=== PATIENT | male | born 1970 | race Caucasian/White ===

== ENCOUNTER 2018-11-07 18:37 | Inpatient (IN) | payer OTHER, MEDICAID, SELFPAY ==
--- NOTE | 2018-11-07 | DI.ECHO.S_ITS ---
[facility]---------+ [facility] +---------+ : : [address] : [place] [address] : : : : [id number] : : : : Phone: [phone]---------+ Echocardiogram Report + + :Name: FELIX CARRILLO Scarlet Study Date: 11/09/2018 Height: 67 in : :[facility] Weight: 130 lb : : Gender: Male BSA: 1.7 m2 : :: 1970 Age: 48 yrs BP: 116/52 mmHg: :Reason For Study: new systolic murmur : : Performed By: Eusebia Burt : :Referring: YOVANA WILEY : + + Interpretation Summary 1) Normal left ventricular size, thickness, wall motion, and systolic function (EF 55-60%). 2) Mildly enlarged right ventricle with mildly reduced function. 3) Aortic valve has nodular calcifications. 4) There is a nodular calcification attached to the base of the anterior mitral valve leaflet which was noted on the prior study. 5) There is moderate aortic regurgitation. 6) Compared to the Echo done 11/01/2014, no significant change. Procedure: A two-dimensional transthoracic echocardiogram with color flow and Doppler was performed. The study quality was technically adequate. Comparison is made with the echocardiogram of 11/01/2014. The heart rate ranged between 100-115 bpm during the study. Left Ventricle: The left ventricle is normal in size. There is normal left ventricular wall thickness. False chords are noted (normal variant). The ejection fraction is estimated to be 55-60%. Diastolic function could not be accurately assessed due to tachycardia. Right Ventricle: The right ventricle is mildly dilated. Right ventricular systolic function is mildly reduced. Atria: Both atria are normal in size. There is no Doppler evidence for an interatrial shunt. Mitral Valve: The mitral valve leaflets appear mildly thickened, but open well. There is a nodular calcification attached to the base of the anterior mitral valve leaflet which was noted on the prior. There is trace mitral regurgitation. Aortic Valve: The aortic valve opens well. The aortic valve is mildly calcified. The aortic valve is trileaflet. There is no hemodynamically significant valvular aortic stenosis. There is moderate aortic regurgitation. Tricuspid Valve: The tricuspid valve is normal in structure and function. There is a trace or physiologic amount of tricuspid regurgitation. Pulmonary artery pressures cannot be estimated because of the lack of a measurable TR jet velocity. Pulmonic Valve: The pulmonic valve leaflets are thin and pliable; valve motion is normal. There is a trace or physiologic amount of pulmonic regurgitation. Great Vessels: The aortic root is normal size. The ascending aorta is normal in size. The aortic arch could not be visualized. The pulmonary artery is normal size. The IVC is of normal diameter and collapses greater than 50% with a sniff. This suggests a low right atrial pressure of 3 mm Hg. Pericardium/ Pleura There is no pericardial effusion. There is no pleural effusion. MMode/2D Measurements & Calculations LVIDd: 4.1 cm LVOT diam: 1.8 cm LVIDs: 3.5 cm Ao root diam: 2.6 cm FS: 15.1 % asc Aorta Diam: 2.7 cm IVSd: 0.70 cm LVPWd: 0.92 cm LV kitchen. diameter/BSA (cm/m^2): 2.4 LV sys. diameter/BSA (cm/m^2): 2.1 LA A2 area: 11.3 cm2 RA long axis: 3.5 cm LA A4 area: 12.3 cm2 RA area: 9.1 cm2 LA length (vol): 5.0 cm RA vol: 20.2 ml LA vol: 23.5 ml RA : 12.0 ml/m2 LA vol index: 13.9 ml/m2 IVC diam: 1.3 cm RVD1 (basal): 2.7 cm TAPSE: 1.1 cm Doppler Measurements & Calculations Ao V2 max: 147.8 cm/sec LVOT Max Damien: 86.8 cm/sec Ao V2 mean: 111.0 cm/sec LV V1 max P.0 mmHg Ao max P.7 mmHg LV V1 VTI: 14.6 cm Ao mean P.4 mmHg MAYA(I,D): 1.3 cm2 Ao V2 VTI: 28.3 cm MAYA(V,D): 1.5 cm2 sev ratio: 0.52 MAYA indexed to BSA (cm^2/m^2): 0.78 AI P1/2t: 270.1 msec AI dec slope: 440.7 cm/sec2 MV E max damien: 114.9 cm/sec SV(LVOT): 37.4 ml MV A max damien: 129.8 cm/sec MV E/A: 0.88 MV dec time: 0.12 sec Reading Physician:01:[id number] PM
--- NOTE | 2018-11-07 | DI.US.S_ITS ---
PROCEDURE: US PERIPH VENOUS LOW EXTREM RT INDICATIONS: RIGHT CALF PAIN TECHNIQUE: Real-time imaging, as well as color and pulse Doppler interrogation, were performed of the lower extremity deep veins from the inguinal ligament to the popliteal fossa. COMPARISON: None. FINDINGS: The deep veins are normally compressible, and free of intraluminal thrombus. Color and pulse Doppler demonstrate normal phasic intraluminal flow. There is normal augmentation response to distal compression maneuver. IMPRESSION: Negative for deep venous thrombosis. Dictated by: Js Ly M.D. on 11/08/2018 at 9:36 Approved by: Js Ly M.D. on 11/08/2018 at 9:37
[2018-11-07 18:39] VITALS: BP 138/72; PULSE 115; RESP 16; TEMP 36.9; O2SAT 97
--- NOTE | 2018-11-07 18:59 | ED.EXTPRO ---
HPI - Extremity Problem <Ita Lynne PA-C - Last Filed: 11/07/18 21:57> General Chief complaint: Extremity Problem,Nontraumatic Stated complaint: SWELLING OF FEET AND HANDS Time Seen by Provider: 11/07/18 18:57 Source: patient Mode of arrival: ambulatory Limitations: no limitations History of Present Illness HPI Narrative: this 48-year-old male comes to ED with 1 week history of pain and some swelling mainly in both feet but somewhat in both hands. He states that this is not acutely worse today, came in because he found time now. he states that he sometimes gets redness in the legs but thinks this is worse. He denies any fever. He denies any pain or swelling in the calves. He denies any chest pain or dyspnea. He denies any pain or swelling in other joints. He states that he does have a history of diabetes and does not typically take his gabapentin. He has a history of diabetic neuropathy with some numbness and tingling. He is a smoker, and states that he does use meth but never shoots up (afraid of needles ). he has been eating and drinking normally Related Data Home Medications Medication Instructions Recorded Confirmed metformin 1,000 mg PO BID 11/07/18 11/07/18 Allergies Allergy/AdvReac Type Severity Reaction Status Date / Time No Known Drug Allergies Allergy Verified 11/07/18 20:52 Review of Systems <Ita Lynne PA-C - Last Filed: 11/07/18 21:57> Review of Systems ROS Unobtainable: All systems reviewed & are unremarkable except as noted in HPI and below PFSH <Ita Lynne PA-C - Last Filed: 11/07/18 21:57> Medical History Current smoker (Acute) Dyspnea on exertion (Acute) Hyperglycemia (Acute) Methamphetamine dependence, continuous (Acute) Diabetic neuropathy (Chronic) Non-insulin dependent type 2 diabetes mellitus (Chronic) History of Wilms' tumor (Resolved) Surgical History S/p nephrectomy (Resolved) Social History household members: significant other Smoking Status: Current every day smoker Social History household members: significant other Smoking Status: Current every day smoker Comment: Uses meth, no IV, rare ETOH Exam <Ita Lynne PA-C - Last Filed: 11/07/18 21:57> Narrative Exam Narrative: GENERAL APPEARANCE: Patient sitting comfortably, in no distress. HEENT: PERRL, EOMI LUNGS: Clear to auscultation bilaterally. HEART: Rate and rhythm regular without murmur, normal S1 and S2, no S3 or S4. DERMATOLOGIC: on both lower extremities there is dry cracked skin, more pronounced on the right. On the right garvin there is a scabbed, hyperkeratotic papule. both feet and shins are somewhat erythematous, but substantially more so on the right. Skin on the right foot is warm to touch, cool on the left. No erythema on the hands. Tender over the skin on the right foot especially on the medial side NEUROVASCULAR: Sensation is grossly intact on the feet, DP and PT pulses 2+ bilaterally EXTREMITIES: No cyanosis, moderate symmetric pitting over the feet, no edema or tenderness of the calves MUSCULOSKELETAL: Mildly nodular joints throughout the hand, no effusion. No effusion of the feet or ankles Initial Vital Signs Initial Vital Signs: Vital Signs Temperature 98.4 F 11/07/18 18:39 Pulse Rate 115 H 11/07/18 18:39 Respiratory Rate 16 11/07/18 18:39 Blood Pressure 138/72 11/07/18 18:39 Pulse Oximetry 97 11/07/18 18:39 <Jameson Tapia DO - Last Filed: 11/08/18 04:39> Initial Vital Signs Initial Vital Signs: Vital Signs Temperature 98.4 F 11/07/18 18:39 Pulse Rate 115 H 11/07/18 18:39 Respiratory Rate 16 11/07/18 18:39 Blood Pressure 138/72 11/07/18 18:39 Pulse Oximetry 97 11/07/18 18:39 Course <Ita Lynne PA-C - Last Filed: 11/07/18 21:57> Additional Information: I spoke with KAYLEEN Joyce regarding admission for obs due to markedly elevated glucose in the setting of cellulitis, noncompliance and uncontrolled DM. Ketones and blood gas pending. he does have a clinic to follow up with though not seen there recently , and if he is admitted this can be arranged. KAYLEEN Joyce is agreeable. IV antibiotics and fluids running and awaiting bed assignment. KAYLEEN Joyce elicited some calf tenderness on exam (none noted on my exam) so D dimer was added to labwork and he will f/u on this Orders Ordered: ED Orders 11/07/18 19:52 Complete Blood Count AUTO DIFF Stat Comprehensive Metabolic Panel Stat D Dimer Stat Ketones (Beta-Hydroxybutyrate) Stat Lactate (Lactic Acid) Stat Partial Thromboplastin Time Stat Procalcitonin Routine Prothrombin Time INR Stat 11/07/18 20:32 Venous Blood Gas Stat 11/07/18 22:22 Education, smoking cessation ONGOING 11/07/18 22:32 Consult to Dietitian, Adult Routine Consult to Discharge Planning Routine Consult to Flexographic Press Operator Routine 11/07/18 23:25 Venous Blood Gas Routine 11/08/18 05:30 Lipid Panel Routine Acetaminophen (Tylenol) 650 mg PO Q6HR PRN PRN Reason: As Needed for Fever/Mild Pain Aspirin (Aspirin Ec) 81 mg PO DAILY [facility] Last Admin: 11/07/18 23:58 Dose: 81 mg Dextrose (D50w) 25 gm IV PRN PRN; Protocol PRN Reason: Hypoglycemia Enoxaparin Sodium (Lovenox) 60 mg SUBCUT DAILY [facility] Sodium Chloride (Normal Saline 0.9%) 1,000 mls @ 100 mls/hr IV CONT [facility] Last Admin: 11/07/18 22:49 Dose: 100 mls/hr Insulin Aspart (Novolog Flexpen) 0 unit SUBCUT ACHS [facility]; Protocol Last Admin: 11/07/18 23:59 Dose: 7 unit Morphine Sulfate (Morphine) 2 mg IV Q4HR PRN PRN Reason: Pain, Moderate (4-6) Naloxone HCl (Narcan) 0.2 mg IV Q2MIN PRN PRN Reason: Opiate Reversal Ondansetron HCl (Zofran) 4 mg IV Q8HR PRN PRN Reason: Nausea And Vomiting Pantoprazole Sodium (Protonix) 20 mg PO 0600 [facility] Discontinued Medications Cefazolin Sodium (Ancef Vial) 1 gm IV NOW ONE Stop: 11/07/18 20:55 Last Admin: 11/07/18 21:45 Dose: 1 gm Enoxaparin Sodium (Lovenox) 40 mg SUBCUT DAILY [facility] Last Admin: 11/07/18 23:58 Dose: 40 mg Sodium Chloride (Normal Saline 0.9%) 1,000 mls @ 1,000 mls/hr IV BOLUS ONE Stop: 11/07/18 21:31 Last Infusion: 11/07/18 22:24 Dose: 0 mls/hr Admin: 11/07/18 20:56 Dose: 1,000 mls/hr Vital Signs - 8 hr 11/07/18 22:40 11/07/18 23:49 11/07/18 23:52 Temperature 97.5 F L 97.7 F Pulse Rate 111 H 105 H Respiratory Rate 18 18 Blood Pressure 143/67 H 138/67 Pulse Oximetry 99 98 98 11/08/18 04:16 Temperature 98.0 F Pulse Rate 123 H Respiratory Rate 20 Blood Pressure 133/63 Pulse Oximetry 95 <Jameson Tapia DO - Last Filed: 11/08/18 04:39> Orders Ordered: ED Orders 11/07/18 19:52 Complete Blood Count AUTO DIFF Stat Comprehensive Metabolic Panel Stat D Dimer Stat Ketones (Beta-Hydroxybutyrate) Stat Lactate (Lactic Acid) Stat Partial Thromboplastin Time Stat Procalcitonin Routine Prothrombin Time INR Stat 11/07/18 20:32 Venous Blood Gas Stat 11/07/18 22:22 Education, smoking cessation ONGOING 11/07/18 22:32 Consult to Dietitian, Adult Routine Consult to Discharge Planning Routine Consult to Flexographic Press Operator Routine 11/07/18 23:25 Venous Blood Gas Routine 11/08/18 05:30 Lipid Panel Routine Acetaminophen (Tylenol) 650 mg PO Q6HR PRN PRN Reason: As Needed for Fever/Mild Pain Aspirin (Aspirin Ec) 81 mg PO DAILY [facility] Last Admin: 11/07/18 23:58 Dose: 81 mg Dextrose (D50w) 25 gm IV PRN PRN; Protocol PRN Reason: Hypoglycemia Enoxaparin Sodium (Lovenox) 60 mg SUBCUT DAILY [facility] Sodium Chloride (Normal Saline 0.9%) 1,000 mls @ 100 mls/hr IV CONT [facility] Last Admin: 11/07/18 22:49 Dose: 100 mls/hr Insulin Aspart (Novolog Flexpen) 0 unit SUBCUT ACHS [facility]; Protocol Last Admin: 11/07/18 23:59 Dose: 7 unit Morphine Sulfate (Morphine) 2 mg IV Q4HR PRN PRN Reason: Pain, Moderate (4-6) Naloxone HCl (Narcan) 0.2 mg IV Q2MIN PRN PRN Reason: Opiate Reversal Ondansetron HCl (Zofran) 4 mg IV Q8HR PRN PRN Reason: Nausea And Vomiting Pantoprazole Sodium (Protonix) 20 mg PO 0600 [facility] Discontinued Medications Cefazolin Sodium (Ancef Vial) 1 gm IV NOW ONE Stop: 11/07/18 20:55 Last Admin: 11/07/18 21:45 Dose: 1 gm Enoxaparin Sodium (Lovenox) 40 mg SUBCUT DAILY [facility] Last Admin: 11/07/18 23:58 Dose: 40 mg Sodium Chloride (Normal Saline 0.9%) 1,000 mls @ 1,000 mls/hr IV BOLUS ONE Stop: 11/07/18 21:31 Last Infusion: 11/07/18 22:24 Dose: 0 mls/hr Admin: 11/07/18 20:56 Dose: 1,000 mls/hr Vital Signs - 8 hr 11/07/18 22:40 11/07/18 23:49 11/07/18 23:52 Temperature 97.5 F L 97.7 F Pulse Rate 111 H 105 H Respiratory Rate 18 18 Blood Pressure 143/67 H 138/67 Pulse Oximetry 99 98 98 11/08/18 04:16 Temperature 98.0 F Pulse Rate 123 H Respiratory Rate 20 Blood Pressure 133/63 Pulse Oximetry 95 MDM - Extremity (Nontraumatic) <Ita Lynne PA-C - Last Filed: 11/07/18 21:57> Lab Data Result diagrams: 11/07/18 19:52 11/07/18 19:52 Lab Results 11/07/18 11/07/18 11/07/18 Range/Units 19:52 19:52 19:52 WBC 8.3 (4.5-11.0) X10^3/uL RBC 4.76 (4.5-5.9) X10^6/uL Hgb 14.8 (13.5-17.5) g/dL Hct 44.6 (41-53) % MCV 93.8 (80-100) fL MCH 31.1 (26-34) PG MCHC 33.1 (30-36) % RDW 12.8 (11.6-14.8) % Plt Count 221 (150-400) X10^3/uL Neut % (Auto) 71.4 (50-75) % Lymph % (Auto) 19.3 L (25-40) % Camp % (Auto) 6.7 (3-14) % Eos % (Auto) 1.7 L (2-4) % Baso % (Auto) 0.9 (0-2) % Neut # (Auto) 5900 (5501-9582) /uL Lymph # (Auto) 1600 (2893-5227) /uL Camp # (Auto) 600 (0-900) /uL Eos # (Auto) 100 (0-450) /uL Baso # (Auto) 100 (0-100) /uL PT 10.0 L (10.1-12.7) SECONDS INR 0.9 (0.9-1.3) APTT 28 (26.4-36.2) SECONDS D-Dimer (<230) ng/mL VBG pH (7.33-7.43) VBG pCO2 (45-50) mmHg VBG pO2 (35-45) mmHg VBG HCO3 (23-28) mmol/L VBG Total CO2 (24-29) mmol/L VBG O2 Saturation (70-75) % VBG Base Excess (0-4) mmol/L Sodium 131 L (137-145) mmol/L Potassium 4.8 (3.4-5.1) mmol/L Chloride 94 L (98-107) mmol/L Carbon Dioxide 29 (22-32) mmol/L BUN 31 H (9-20) mg/dL Creatinine 1.00 (0.66-1.25) mg/dL Estimated GFR > 60.0 (>60) mL/min BUN/Creatinine Ratio 31.0 H (6-22) Glucose 583 H* (70-100) mg/dL Lactate (0.7-2.1) mmol/L Calcium 10.2 (8.4-10.2) mg/dL Total Bilirubin 0.3 (0.2-1.3) mg/dL AST 24 (17-59) IU/L ALT 39 (21-72) IU/L Alkaline Phosphatase 149 H (38-126) U/L Total Protein 7.2 (6.3-8.2) g/dL Albumin 4.0 (3.5-5.0) g/dL Globulin 3.2 (1.7-4.1) g/dL Albumin/Globulin Ratio 1.3 (1.0-2.8) Procalcitonin (<0.5) ng/mL Urine Color Urine Appearance Urine pH (4.5-8.0) Ur Specific [place] (1.000-1.035) Urine Protein (Negative) Urine Glucose (UA) (Negative) g/dL Urine Ketones (NEGATIVE) Urine Occult Blood (Negative) Urine Nitrate (Negative) Urine Bilirubin (NEGATIVE) Urine Urobilinogen (0.2) E.U./dL Ur Leukocyte Esterase (NEGATIVE) Urine RBC (0-5/HPF) Urine WBC (0-5/HPF) Urine Bacteria (None) Ur Culture Indicated? Micro UA Comment Urine Opiates Screen (Negative) Ur Oxycodone Screen (Negative) Urine Methadone Screen (Negative) Ur Barbiturates Screen (Negative) U Tricyclic Antidepress (Negative) Ur Phencyclidine Scrn (Negative) Ur Amphetamines Screen (Negative) U Methamphetamines Scrn (Negative) Ur MDMA Scrn (Ecstasy) (Negative) U Benzodiazepines Scrn (Negative) Urine Cocaine Screen (Negative) U Marijuana (THC) Screen (Negative) Ketones (<0.27) mmol/L 11/07/18 11/07/18 11/07/18 Range/Units 19:52 19:52 19:52 WBC (4.5-11.0) X10^3/uL RBC (4.5-5.9) X10^6/uL Hgb (13.5-17.5) g/dL Hct (41-53) % MCV (80-100) fL MCH (26-34) PG MCHC (30-36) % RDW (11.6-14.8) % Plt Count (150-400) X10^3/uL Neut % (Auto) (50-75) % Lymph % (Auto) (25-40) % Camp % (Auto) (3-14) % Eos % (Auto) (2-4) % Baso % (Auto) (0-2) % Neut # (Auto) (9299-8074) /uL Lymph # (Auto) (5084-8207) /uL Camp # (Auto) (0-900) /uL Eos # (Auto) (0-450) /uL Baso # (Auto) (0-100) /uL PT (10.1-12.7) SECONDS INR (0.9-1.3) APTT (26.4-36.2) SECONDS D-Dimer 245 H (<230) ng/mL VBG pH (7.33-7.43) VBG pCO2 (45-50) mmHg VBG pO2 (35-45) mmHg VBG HCO3 (23-28) mmol/L VBG Total CO2 (24-29) mmol/L VBG O2 Saturation (70-75) % VBG Base Excess (0-4) mmol/L Sodium (137-145) mmol/L Potassium (3.4-5.1) mmol/L Chloride (98-107) mmol/L Carbon Dioxide (22-32) mmol/L BUN (9-20) mg/dL Creatinine (0.66-1.25) mg/dL Estimated GFR (>60) mL/min BUN/Creatinine Ratio (6-22) Glucose (70-100) mg/dL Lactate 1.0 (0.7-2.1) mmol/L Calcium (8.4-10.2) mg/dL Total Bilirubin (0.2-1.3) mg/dL AST (17-59) IU/L ALT (21-72) IU/L Alkaline Phosphatase (38-126) U/L Total Protein (6.3-8.2) g/dL Albumin (3.5-5.0) g/dL Globulin (1.7-4.1) g/dL Albumin/Globulin Ratio (1.0-2.8) Procalcitonin (<0.5) ng/mL Urine Color Urine Appearance Urine pH (4.5-8.0) Ur Specific [place] (1.000-1.035) Urine Protein (Negative) Urine Glucose (UA) (Negative) g/dL Urine Ketones (NEGATIVE) Urine Occult Blood (Negative) Urine Nitrate (Negative) Urine Bilirubin (NEGATIVE) Urine Urobilinogen (0.2) E.U./dL Ur Leukocyte Esterase (NEGATIVE) Urine RBC (0-5/HPF) Urine WBC (0-5/HPF) Urine Bacteria (None) Ur Culture Indicated? Micro UA Comment Urine Opiates Screen (Negative) Ur Oxycodone Screen (Negative) Urine Methadone Screen (Negative) Ur Barbiturates Screen (Negative) U Tricyclic Antidepress (Negative) Ur Phencyclidine Scrn (Negative) Ur Amphetamines Screen (Negative) U Methamphetamines Scrn (Negative) Ur MDMA Scrn (Ecstasy) (Negative) U Benzodiazepines Scrn (Negative) Urine Cocaine Screen (Negative) U Marijuana (THC) Screen (Negative) Ketones 0.16 (<0.27) mmol/L 11/07/18 11/07/18 11/07/18 Range/Units 19:52 23:25 Unknown WBC (4.5-11.0) X10^3/uL RBC (4.5-5.9) X10^6/uL Hgb (13.5-17.5) g/dL Hct (41-53) % MCV (80-100) fL MCH (26-34) PG MCHC (30-36) % RDW (11.6-14.8) % Plt Count (150-400) X10^3/uL Neut % (Auto) (50-75) % Lymph % (Auto) (25-40) % Camp % (Auto) (3-14) % Eos % (Auto) (2-4) % Baso % (Auto) (0-2) % Neut # (Auto) (4741-4530) /uL Lymph # (Auto) (9240-7268) /uL Camp # (Auto) (0-900) /uL Eos # (Auto) (0-450) /uL Baso # (Auto) (0-100) /uL PT (10.1-12.7) SECONDS INR (0.9-1.3) APTT (26.4-36.2) SECONDS D-Dimer (<230) ng/mL VBG pH 7.33 (7.33-7.43) VBG pCO2 56.0 H (45-50) mmHg VBG pO2 32 L (35-45) mmHg VBG HCO3 30 H (23-28) mmol/L VBG Total CO2 31 H (24-29) mmol/L VBG O2 Saturation 56 L (70-75) % VBG Base Excess 4.0 (0-4) mmol/L Sodium (137-145) mmol/L Potassium (3.4-5.1) mmol/L Chloride (98-107) mmol/L Carbon Dioxide (22-32) mmol/L BUN (9-20) mg/dL Creatinine (0.66-1.25) mg/dL Estimated GFR (>60) mL/min BUN/Creatinine Ratio (6-22) Glucose (70-100) mg/dL Lactate (0.7-2.1) mmol/L Calcium (8.4-10.2) mg/dL Total Bilirubin (0.2-1.3) mg/dL AST (17-59) IU/L ALT (21-72) IU/L Alkaline Phosphatase (38-126) U/L Total Protein (6.3-8.2) g/dL Albumin (3.5-5.0) g/dL Globulin (1.7-4.1) g/dL Albumin/Globulin Ratio (1.0-2.8) Procalcitonin < 0.05 (<0.5) ng/mL Urine Color Straw Urine Appearance Clear Urine pH 6.0 (4.5-8.0) Ur Specific [place] 1.010 (1.000-1.035) Urine Protein Negative (Negative) Urine Glucose (UA) 2+ H (Negative) g/dL Urine Ketones Negative (NEGATIVE) Urine Occult Blood Negative (Negative) Urine Nitrate Negative (Negative) Urine Bilirubin Negative (NEGATIVE) Urine Urobilinogen 0.2 (0.2) E.U./dL Ur Leukocyte Esterase Negative (NEGATIVE) Urine RBC None seen (0-5/HPF) Urine WBC None seen (0-5/HPF) Urine Bacteria None seen (None) Ur Culture Indicated? Cult not indicated Micro UA Comment Microscopic normal Urine Opiates Screen (Negative) Ur Oxycodone Screen (Negative) Urine Methadone Screen (Negative) Ur Barbiturates Screen (Negative) U Tricyclic Antidepress (Negative) Ur Phencyclidine Scrn (Negative) Ur Amphetamines Screen (Negative) U Methamphetamines Scrn (Negative) Ur MDMA Scrn (Ecstasy) (Negative) U Benzodiazepines Scrn (Negative) Urine Cocaine Screen (Negative) U Marijuana (THC) Screen (Negative) Ketones (<0.27) mmol/L 11/07/18 Range/Units Unknown WBC (4.5-11.0) X10^3/uL RBC (4.5-5.9) X10^6/uL Hgb (13.5-17.5) g/dL Hct (41-53) % MCV (80-100) fL MCH (26-34) PG MCHC (30-36) % RDW (11.6-14.8) % Plt Count (150-400) X10^3/uL Neut % (Auto) (50-75) % Lymph % (Auto) (25-40) % Camp % (Auto) (3-14) % Eos % (Auto) (2-4) % Baso % (Auto) (0-2) % Neut # (Auto) (0741-4396) /uL Lymph # (Auto) (6334-2811) /uL Camp # (Auto) (0-900) /uL Eos # (Auto) (0-450) /uL Baso # (Auto) (0-100) /uL PT (10.1-12.7) SECONDS INR (0.9-1.3) APTT (26.4-36.2) SECONDS D-Dimer (<230) ng/mL VBG pH (7.33-7.43) VBG pCO2 (45-50) mmHg VBG pO2 (35-45) mmHg VBG HCO3 (23-28) mmol/L VBG Total CO2 (24-29) mmol/L VBG O2 Saturation (70-75) % VBG Base Excess (0-4) mmol/L Sodium (137-145) mmol/L Potassium (3.4-5.1) mmol/L Chloride (98-107) mmol/L Carbon Dioxide (22-32) mmol/L BUN (9-20) mg/dL Creatinine (0.66-1.25) mg/dL Estimated GFR (>60) mL/min BUN/Creatinine Ratio (6-22) Glucose (70-100) mg/dL Lactate (0.7-2.1) mmol/L Calcium (8.4-10.2) mg/dL Total Bilirubin (0.2-1.3) mg/dL AST (17-59) IU/L ALT (21-72) IU/L Alkaline Phosphatase (38-126) U/L Total Protein (6.3-8.2) g/dL Albumin (3.5-5.0) g/dL Globulin (1.7-4.1) g/dL Albumin/Globulin Ratio (1.0-2.8) Procalcitonin (<0.5) ng/mL Urine Color Urine Appearance Urine pH (4.5-8.0) Ur Specific [place] (1.000-1.035) Urine Protein (Negative) Urine Glucose (UA) (Negative) g/dL Urine Ketones (NEGATIVE) Urine Occult Blood (Negative) Urine Nitrate (Negative) Urine Bilirubin (NEGATIVE) Urine Urobilinogen (0.2) E.U./dL Ur Leukocyte Esterase (NEGATIVE) Urine RBC (0-5/HPF) Urine WBC (0-5/HPF) Urine Bacteria (None) Ur Culture Indicated? Micro UA Comment Urine Opiates Screen Negative (Negative) Ur Oxycodone Screen Negative (Negative) Urine Methadone Screen Negative (Negative) Ur Barbiturates Screen Negative (Negative) U Tricyclic Antidepress Negative (Negative) Ur Phencyclidine Scrn Negative (Negative) Ur Amphetamines Screen Positive H (Negative) U Methamphetamines Scrn Positive H (Negative) Ur MDMA Scrn (Ecstasy) Negative (Negative) U Benzodiazepines Scrn Negative (Negative) Urine Cocaine Screen Negative (Negative) U Marijuana (THC) Screen Negative (Negative) Ketones (<0.27) mmol/L Point of Care Testing Glucose POC 278 Urine Dip Bedside Urine Glucose 1000 mg/dl Bedside Urine Bilirubin - Negative Bedside Urine Ketone - Negative Urine Specific [place] 1.015 Bedside Urine Occult Blood - Negative Bedside Urine pH 6.0 Bedside Urine Protein - Negative Bedside Urine Urobilinogen - Negative Bedside Urine Nitrite - Negative Bedside Urine Leukocytes - Negative Esterase <Jameson Tapia, DO - Last Filed: 11/08/18 04:39> Lab Data Lab Results 11/07/18 11/07/18 11/07/18 Range/Units 19:52 19:52 19:52 WBC 8.3 (4.5-11.0) X10^3/uL RBC 4.76 (4.5-5.9) X10^6/uL Hgb 14.8 (13.5-17.5) g/dL Hct 44.6 (41-53) % MCV 93.8 (80-100) fL MCH 31.1 (26-34) PG MCHC 33.1 (30-36) % RDW 12.8 (11.6-14.8) % Plt Count 221 (150-400) X10^3/uL Neut % (Auto) 71.4 (50-75) % Lymph % (Auto) 19.3 L (25-40) % Camp % (Auto) 6.7 (3-14) % Eos % (Auto) 1.7 L (2-4) % Baso % (Auto) 0.9 (0-2) % Neut # (Auto) 5900 (1041-2269) /uL Lymph # (Auto) 1600 (9163-2857) /uL Camp # (Auto) 600 (0-900) /uL Eos # (Auto) 100 (0-450) /uL Baso # (Auto) 100 (0-100) /uL PT 10.0 L (10.1-12.7) SECONDS INR 0.9 (0.9-1.3) APTT 28 (26.4-36.2) SECONDS D-Dimer (<230) ng/mL VBG pH (7.33-7.43) VBG pCO2 (45-50) mmHg VBG pO2 (35-45) mmHg VBG HCO3 (23-28) mmol/L VBG Total CO2 (24-29) mmol/L VBG O2 Saturation (70-75) % VBG Base Excess (0-4) mmol/L Sodium 131 L (137-145) mmol/L Potassium 4.8 (3.4-5.1) mmol/L Chloride 94 L (98-107) mmol/L Carbon Dioxide 29 (22-32) mmol/L BUN 31 H (9-20) mg/dL Creatinine 1.00 (0.66-1.25) mg/dL Estimated GFR > 60.0 (>60) mL/min BUN/Creatinine Ratio 31.0 H (6-22) Glucose 583 H* (70-100) mg/dL Lactate (0.7-2.1) mmol/L Calcium 10.2 (8.4-10.2) mg/dL Total Bilirubin 0.3 (0.2-1.3) mg/dL AST 24 (17-59) IU/L ALT 39 (21-72) IU/L Alkaline Phosphatase 149 H (38-126) U/L Total Protein 7.2 (6.3-8.2) g/dL Albumin 4.0 (3.5-5.0) g/dL Globulin 3.2 (1.7-4.1) g/dL Albumin/Globulin Ratio 1.3 (1.0-2.8) Procalcitonin (<0.5) ng/mL Urine Color Urine Appearance Urine pH (4.5-8.0) Ur Specific [place] (1.000-1.035) Urine Protein (Negative) Urine Glucose (UA) (Negative) g/dL Urine Ketones (NEGATIVE) Urine Occult Blood (Negative) Urine Nitrate (Negative) Urine Bilirubin (NEGATIVE) Urine Urobilinogen (0.2) E.U./dL Ur Leukocyte Esterase (NEGATIVE) Urine RBC (0-5/HPF) Urine WBC (0-5/HPF) Urine Bacteria (None) Ur Culture Indicated? Micro UA Comment Urine Opiates Screen (Negative) Ur Oxycodone Screen (Negative) Urine Methadone Screen (Negative) Ur Barbiturates Screen (Negative) U Tricyclic Antidepress (Negative) Ur Phencyclidine Scrn (Negative) Ur Amphetamines Screen (Negative) U Methamphetamines Scrn (Negative) Ur MDMA Scrn (Ecstasy) (Negative) U Benzodiazepines Scrn (Negative) Urine Cocaine Screen (Negative) U Marijuana (THC) Screen (Negative) Ketones (<0.27) mmol/L 11/07/18 11/07/18 11/07/18 Range/Units 19:52 19:52 19:52 WBC (4.5-11.0) X10^3/uL RBC (4.5-5.9) X10^6/uL Hgb (13.5-17.5) g/dL Hct (41-53) % MCV (80-100) fL MCH (26-34) PG MCHC (30-36) % RDW (11.6-14.8) % Plt Count (150-400) X10^3/uL Neut % (Auto) (50-75) % Lymph % (Auto) (25-40) % Camp % (Auto) (3-14) % Eos % (Auto) (2-4) % Baso % (Auto) (0-2) % Neut # (Auto) (4428-7335) /uL Lymph # (Auto) (2495-9556) /uL Camp # (Auto) (0-900) /uL Eos # (Auto) (0-450) /uL Baso # (Auto) (0-100) /uL PT (10.1-12.7) SECONDS INR (0.9-1.3) APTT (26.4-36.2) SECONDS D-Dimer 245 H (<230) ng/mL VBG pH (7.33-7.43) VBG pCO2 (45-50) mmHg VBG pO2 (35-45) mmHg VBG HCO3 (23-28) mmol/L VBG Total CO2 (24-29) mmol/L VBG O2 Saturation (70-75) % VBG Base Excess (0-4) mmol/L Sodium (137-145) mmol/L Potassium (3.4-5.1) mmol/L Chloride (98-107) mmol/L Carbon Dioxide (22-32) mmol/L BUN (9-20) mg/dL Creatinine (0.66-1.25) mg/dL Estimated GFR (>60) mL/min BUN/Creatinine Ratio (6-22) Glucose (70-100) mg/dL Lactate 1.0 (0.7-2.1) mmol/L Calcium (8.4-10.2) mg/dL Total Bilirubin (0.2-1.3) mg/dL AST (17-59) IU/L ALT (21-72) IU/L Alkaline Phosphatase (38-126) U/L Total Protein (6.3-8.2) g/dL Albumin (3.5-5.0) g/dL Globulin (1.7-4.1) g/dL Albumin/Globulin Ratio (1.0-2.8) Procalcitonin (<0.5) ng/mL Urine Color Urine Appearance Urine pH (4.5-8.0) Ur Specific [place] (1.000-1.035) Urine Protein (Negative) Urine Glucose (UA) (Negative) g/dL Urine Ketones (NEGATIVE) Urine Occult Blood (Negative) Urine Nitrate (Negative) Urine Bilirubin (NEGATIVE) Urine Urobilinogen (0.2) E.U./dL Ur Leukocyte Esterase (NEGATIVE) Urine RBC (0-5/HPF) Urine WBC (0-5/HPF) Urine Bacteria (None) Ur Culture Indicated? Micro UA Comment Urine Opiates Screen (Negative) Ur Oxycodone Screen (Negative) Urine Methadone Screen (Negative) Ur Barbiturates Screen (Negative) U Tricyclic Antidepress (Negative) Ur Phencyclidine Scrn (Negative) Ur Amphetamines Screen (Negative) U Methamphetamines Scrn (Negative) Ur MDMA Scrn (Ecstasy) (Negative) U Benzodiazepines Scrn (Negative) Urine Cocaine Screen (Negative) U Marijuana (THC) Screen (Negative) Ketones 0.16 (<0.27) mmol/L 11/07/18 11/07/18 11/07/18 Range/Units 19:52 23:25 Unknown WBC (4.5-11.0) X10^3/uL RBC (4.5-5.9) X10^6/uL Hgb (13.5-17.5) g/dL Hct (41-53) % MCV (80-100) fL MCH (26-34) PG MCHC (30-36) % RDW (11.6-14.8) % Plt Count (150-400) X10^3/uL Neut % (Auto) (50-75) % Lymph % (Auto) (25-40) % Camp % (Auto) (3-14) % Eos % (Auto) (2-4) % Baso % (Auto) (0-2) % Neut # (Auto) (5863-5126) /uL Lymph # (Auto) (8029-2424) /uL Camp # (Auto) (0-900) /uL Eos # (Auto) (0-450) /uL Baso # (Auto) (0-100) /uL PT (10.1-12.7) SECONDS INR (0.9-1.3) APTT (26.4-36.2) SECONDS D-Dimer (<230) ng/mL VBG pH 7.33 (7.33-7.43) VBG pCO2 56.0 H (45-50) mmHg VBG pO2 32 L (35-45) mmHg VBG HCO3 30 H (23-28) mmol/L VBG Total CO2 31 H (24-29) mmol/L VBG O2 Saturation 56 L (70-75) % VBG Base Excess 4.0 (0-4) mmol/L Sodium (137-145) mmol/L Potassium (3.4-5.1) mmol/L Chloride (98-107) mmol/L Carbon Dioxide (22-32) mmol/L BUN (9-20) mg/dL Creatinine (0.66-1.25) mg/dL Estimated GFR (>60) mL/min BUN/Creatinine Ratio (6-22) Glucose (70-100) mg/dL Lactate (0.7-2.1) mmol/L Calcium (8.4-10.2) mg/dL Total Bilirubin (0.2-1.3) mg/dL AST (17-59) IU/L ALT (21-72) IU/L Alkaline Phosphatase (38-126) U/L Total Protein (6.3-8.2) g/dL Albumin (3.5-5.0) g/dL Globulin (1.7-4.1) g/dL Albumin/Globulin Ratio (1.0-2.8) Procalcitonin < 0.05 (<0.5) ng/mL Urine Color Straw Urine Appearance Clear Urine pH 6.0 (4.5-8.0) Ur Specific [place] 1.010 (1.000-1.035) Urine Protein Negative (Negative) Urine Glucose (UA) 2+ H (Negative) g/dL Urine Ketones Negative (NEGATIVE) Urine Occult Blood Negative (Negative) Urine Nitrate Negative (Negative) Urine Bilirubin Negative (NEGATIVE) Urine Urobilinogen 0.2 (0.2) E.U./dL Ur Leukocyte Esterase Negative (NEGATIVE) Urine RBC None seen (0-5/HPF) Urine WBC None seen (0-5/HPF) Urine Bacteria None seen (None) Ur Culture Indicated? Cult not indicated Micro UA Comment Microscopic normal Urine Opiates Screen (Negative) Ur Oxycodone Screen (Negative) Urine Methadone Screen (Negative) Ur Barbiturates Screen (Negative) U Tricyclic Antidepress (Negative) Ur Phencyclidine Scrn (Negative) Ur Amphetamines Screen (Negative) U Methamphetamines Scrn (Negative) Ur MDMA Scrn (Ecstasy) (Negative) U Benzodiazepines Scrn (Negative) Urine Cocaine Screen (Negative) U Marijuana (THC) Screen (Negative) Ketones (<0.27) mmol/L 11/07/18 Range/Units Unknown WBC (4.5-11.0) X10^3/uL RBC (4.5-5.9) X10^6/uL Hgb (13.5-17.5) g/dL Hct (41-53) % MCV (80-100) fL MCH (26-34) PG MCHC (30-36) % RDW (11.6-14.8) % Plt Count (150-400) X10^3/uL Neut % (Auto) (50-75) % Lymph % (Auto) (25-40) % Camp % (Auto) (3-14) % Eos % (Auto) (2-4) % Baso % (Auto) (0-2) % Neut # (Auto) (8394-6107) /uL Lymph # (Auto) (3587-5370) /uL Camp # (Auto) (0-900) /uL Eos # (Auto) (0-450) /uL Baso # (Auto) (0-100) /uL PT (10.1-12.7) SECONDS INR (0.9-1.3) APTT (26.4-36.2) SECONDS D-Dimer (<230) ng/mL VBG pH (7.33-7.43) VBG pCO2 (45-50) mmHg VBG pO2 (35-45) mmHg VBG HCO3 (23-28) mmol/L VBG Total CO2 (24-29) mmol/L VBG O2 Saturation (70-75) % VBG Base Excess (0-4) mmol/L Sodium (137-145) mmol/L Potassium (3.4-5.1) mmol/L Chloride (98-107) mmol/L Carbon Dioxide (22-32) mmol/L BUN (9-20) mg/dL Creatinine (0.66-1.25) mg/dL Estimated GFR (>60) mL/min BUN/Creatinine Ratio (6-22) Glucose (70-100) mg/dL Lactate (0.7-2.1) mmol/L Calcium (8.4-10.2) mg/dL Total Bilirubin (0.2-1.3) mg/dL AST (17-59) IU/L ALT (21-72) IU/L Alkaline Phosphatase (38-126) U/L Total Protein (6.3-8.2) g/dL Albumin (3.5-5.0) g/dL Globulin (1.7-4.1) g/dL Albumin/Globulin Ratio (1.0-2.8) Procalcitonin (<0.5) ng/mL Urine Color Urine Appearance Urine pH (4.5-8.0) Ur Specific [place] (1.000-1.035) Urine Protein (Negative) Urine Glucose (UA) (Negative) g/dL Urine Ketones (NEGATIVE) Urine Occult Blood (Negative) Urine Nitrate (Negative) Urine Bilirubin (NEGATIVE) Urine Urobilinogen (0.2) E.U./dL Ur Leukocyte Esterase (NEGATIVE) Urine RBC (0-5/HPF) Urine WBC (0-5/HPF) Urine Bacteria (None) Ur Culture Indicated? Micro UA Comment Urine Opiates Screen Negative (Negative) Ur Oxycodone Screen Negative (Negative) Urine Methadone Screen Negative (Negative) Ur Barbiturates Screen Negative (Negative) U Tricyclic Antidepress Negative (Negative) Ur Phencyclidine Scrn Negative (Negative) Ur Amphetamines Screen Positive H (Negative) U Methamphetamines Scrn Positive H (Negative) Ur MDMA Scrn (Ecstasy) Negative (Negative) U Benzodiazepines Scrn Negative (Negative) Urine Cocaine Screen Negative (Negative) U Marijuana (THC) Screen Negative (Negative) Ketones (<0.27) mmol/L Point of Care Testing Glucose POC 278 Urine Dip Bedside Urine Glucose 1000 mg/dl Bedside Urine Bilirubin - Negative Bedside Urine Ketone - Negative Urine Specific [place] 1.015 Bedside Urine Occult Blood - Negative Bedside Urine pH 6.0 Bedside Urine Protein - Negative Bedside Urine Urobilinogen - Negative Bedside Urine Nitrite - Negative Bedside Urine Leukocytes - Negative Esterase Discharge Plan Departure Patient Disposition: Admitted as Observation Clinical Impression: Cellulitis Qualifiers: Site of cellulitis: extremity Site of cellulitis of extremity: lower extremity Laterality: right Qualified Code(s): L03.115 - Cellulitis of right lower limb Uncontrolled diabetes mellitus Qualifiers: Diabetes mellitus type: type 2 Glycemic state: with hyperglycemia Qualified Code(s): E11.65 - Type 2 diabetes mellitus with hyperglycemia Discharge Date/Time: 11/07/18 22:35 Interventions: ED Discharge Assessment Last Done: 11/07/18 22:36 Admit Date/Time: 11/07/18 22:17 Admit Provider: Tyron Joyce <Jameson Tapia DO - Last Filed: 11/08/18 04:39> Cosign ED Attending Juan A Attestation: I was immediately available in the department for consultation. Documentation has been reviewed. I agree with assessment and plan.
--- NOTE | 2018-11-07 20:00 | ED_ITS ---
HPI - Extremity Problem <Ita Lynne PA-C - Last Filed: 11/07/18 21:57> General Chief complaint: Extremity Problem,Nontraumatic Stated complaint: SWELLING OF FEET AND HANDS Time Seen by Provider: 11/07/18 18:57 Source: patient Mode of arrival: ambulatory Limitations: no limitations History of Present Illness HPI Narrative: this 48-year-old male comes to ED with 1 week history of pain and some swelling mainly in both feet but somewhat in both hands. He states that this is not acutely worse today, came in because he found time now. he states that he sometimes gets redness in the legs but thinks this is worse. He denies any fever. He denies any pain or swelling in the calves. He denies any chest pain or dyspnea. He denies any pain or swelling in other joints. He states that he does have a history of diabetes and does not typically take his gabapentin. He has a history of diabetic neuropathy with some numbness and tingling. He is a smoker, and states that he does use meth but never shoots up (afraid of needles ). he has been eating and drinking normally Related Data Home Medications Medication Instructions Recorded Confirmed metformin 1,000 mg PO BID 11/07/18 11/07/18 Allergies Allergy/AdvReac Type Severity Reaction Status Date / Time No Known Drug Allergies Allergy Verified 11/07/18 20:52 Review of Systems <Ita Lynne PA-C - Last Filed: 11/07/18 21:57> Review of Systems ROS Unobtainable: All systems reviewed & are unremarkable except as noted in HPI and below PFSH <Ita Lynne PA-C - Last Filed: 11/07/18 21:57> Medical History Current smoker (Acute) Dyspnea on exertion (Acute) Hyperglycemia (Acute) Methamphetamine dependence, continuous (Acute) Diabetic neuropathy (Chronic) Non-insulin dependent type 2 diabetes mellitus (Chronic) History of Wilms' tumor (Resolved) Surgical History S/p nephrectomy (Resolved) Social History household members: significant other Smoking Status: Current every day smoker Social History household members: significant other Smoking Status: Current every day smoker Comment: Uses meth, no IV, rare ETOH Exam <Ita Lynne PA-C - Last Filed: 11/07/18 21:57> Narrative Exam Narrative: GENERAL APPEARANCE: Patient sitting comfortably, in no distress. HEENT: PERRL, EOMI LUNGS: Clear to auscultation bilaterally. HEART: Rate and rhythm regular without murmur, normal S1 and S2, no S3 or S4. DERMATOLOGIC: on both lower extremities there is dry cracked skin, more pronounced on the right. On the right garvin there is a scabbed, hyperkeratotic papule. both feet and shins are somewhat erythematous, but substantially more so on the right. Skin on the right foot is warm to touch, cool on the left. No erythema on the hands. Tender over the skin on the right foot especially on the medial side NEUROVASCULAR: Sensation is grossly intact on the feet, DP and PT pulses 2+ bilaterally EXTREMITIES: No cyanosis, moderate symmetric pitting over the feet, no edema or tenderness of the calves MUSCULOSKELETAL: Mildly nodular joints throughout the hand, no effusion. No effusion of the feet or ankles Initial Vital Signs Initial Vital Signs: Vital Signs Temperature 98.4 F 11/07/18 18:39 Pulse Rate 115 H 11/07/18 18:39 Respiratory Rate 16 11/07/18 18:39 Blood Pressure 138/72 11/07/18 18:39 Pulse Oximetry 97 11/07/18 18:39 <Jameson Tapia DO - Last Filed: 11/08/18 04:39> Initial Vital Signs Initial Vital Signs: Vital Signs Temperature 98.4 F 11/07/18 18:39 Pulse Rate 115 H 11/07/18 18:39 Respiratory Rate 16 11/07/18 18:39 Blood Pressure 138/72 11/07/18 18:39 Pulse Oximetry 97 11/07/18 18:39 Course <Ita Lynne PA-C - Last Filed: 11/07/18 21:57> Additional Information: I spoke with KAYLEEN Joyce regarding admission for obs due to markedly elevated glucose in the setting of cellulitis, noncompliance and uncontrolled DM. Ketones and blood gas pending. he does have a clinic to follow up with though not seen there recently , and if he is admitted this can be arranged. KAYLEEN Joyce is agreeable. IV antibiotics and fluids running and awaiting bed assignment. KAYLEEN Joyce elicited some calf tenderness on exam (none noted on my exam) so D dimer was added to labwork and he will f/u on this Orders Ordered: ED Orders 11/07/18 19:52 Complete Blood Count AUTO DIFF Stat Comprehensive Metabolic Panel Stat D Dimer Stat Ketones (Beta-Hydroxybutyrate) Stat Lactate (Lactic Acid) Stat Partial Thromboplastin Time Stat Procalcitonin Routine Prothrombin Time INR Stat 11/07/18 20:32 Venous Blood Gas Stat 11/07/18 22:22 Education, smoking cessation ONGOING 11/07/18 22:32 Consult to Dietitian, Adult Routine Consult to Discharge Planning Routine Consult to Camera Assembler Routine 11/07/18 23:25 Venous Blood Gas Routine 11/08/18 05:30 Lipid Panel Routine Acetaminophen (Tylenol) 650 mg PO Q6HR PRN PRN Reason: As Needed for Fever/Mild Pain Aspirin (Aspirin Ec) 81 mg PO DAILY REPLACED BY [facility] Last Admin: 11/07/18 23:58 Dose: 81 mg Dextrose (D50w) 25 gm IV PRN PRN; Protocol PRN Reason: Hypoglycemia Enoxaparin Sodium (Lovenox) 60 mg SUBCUT DAILY REPLACED BY [facility] Sodium Chloride (Normal Saline 0.9%) 1,000 mls @ 100 mls/hr IV CONT REPLACED BY [facility] Last Admin: 11/07/18 22:49 Dose: 100 mls/hr Insulin Aspart (Novolog Flexpen) 0 unit SUBCUT ACHS REPLACED BY [facility]; Protocol Last Admin: 11/07/18 23:59 Dose: 7 unit Morphine Sulfate (Morphine) 2 mg IV Q4HR PRN PRN Reason: Pain, Moderate (4-6) Naloxone HCl (Narcan) 0.2 mg IV Q2MIN PRN PRN Reason: Opiate Reversal Ondansetron HCl (Zofran) 4 mg IV Q8HR PRN PRN Reason: Nausea And Vomiting Pantoprazole Sodium (Protonix) 20 mg PO 0600 REPLACED BY [facility] Discontinued Medications Cefazolin Sodium (Ancef Vial) 1 gm IV NOW ONE Stop: 11/07/18 20:55 Last Admin: 11/07/18 21:45 Dose: 1 gm Enoxaparin Sodium (Lovenox) 40 mg SUBCUT DAILY REPLACED BY [facility] Last Admin: 11/07/18 23:58 Dose: 40 mg Sodium Chloride (Normal Saline 0.9%) 1,000 mls @ 1,000 mls/hr IV BOLUS ONE Stop: 11/07/18 21:31 Last Infusion: 11/07/18 22:24 Dose: 0 mls/hr Admin: 11/07/18 20:56 Dose: 1,000 mls/hr Vital Signs - 8 hr 11/07/18 22:40 11/07/18 23:49 11/07/18 23:52 Temperature 97.5 F L 97.7 F Pulse Rate 111 H 105 H Respiratory Rate 18 18 Blood Pressure 143/67 H 138/67 Pulse Oximetry 99 98 98 11/08/18 04:16 Temperature 98.0 F Pulse Rate 123 H Respiratory Rate 20 Blood Pressure 133/63 Pulse Oximetry 95 <Jameson Tapia DO - Last Filed: 11/08/18 04:39> Orders Ordered: ED Orders 11/07/18 19:52 Complete Blood Count AUTO DIFF Stat Comprehensive Metabolic Panel Stat D Dimer Stat Ketones (Beta-Hydroxybutyrate) Stat Lactate (Lactic Acid) Stat Partial Thromboplastin Time Stat Procalcitonin Routine Prothrombin Time INR Stat 11/07/18 20:32 Venous Blood Gas Stat 11/07/18 22:22 Education, smoking cessation ONGOING 11/07/18 22:32 Consult to Dietitian, Adult Routine Consult to Discharge Planning Routine Consult to Camera Assembler Routine 11/07/18 23:25 Venous Blood Gas Routine 11/08/18 05:30 Lipid Panel Routine Acetaminophen (Tylenol) 650 mg PO Q6HR PRN PRN Reason: As Needed for Fever/Mild Pain Aspirin (Aspirin Ec) 81 mg PO DAILY REPLACED BY [facility] Last Admin: 11/07/18 23:58 Dose: 81 mg Dextrose (D50w) 25 gm IV PRN PRN; Protocol PRN Reason: Hypoglycemia Enoxaparin Sodium (Lovenox) 60 mg SUBCUT DAILY REPLACED BY [facility] Sodium Chloride (Normal Saline 0.9%) 1,000 mls @ 100 mls/hr IV CONT REPLACED BY [facility] Last Admin: 11/07/18 22:49 Dose: 100 mls/hr Insulin Aspart (Novolog Flexpen) 0 unit SUBCUT ACHS REPLACED BY [facility]; Protocol Last Admin: 11/07/18 23:59 Dose: 7 unit Morphine Sulfate (Morphine) 2 mg IV Q4HR PRN PRN Reason: Pain, Moderate (4-6) Naloxone HCl (Narcan) 0.2 mg IV Q2MIN PRN PRN Reason: Opiate Reversal Ondansetron HCl (Zofran) 4 mg IV Q8HR PRN PRN Reason: Nausea And Vomiting Pantoprazole Sodium (Protonix) 20 mg PO 0600 REPLACED BY [facility] Discontinued Medications Cefazolin Sodium (Ancef Vial) 1 gm IV NOW ONE Stop: 11/07/18 20:55 Last Admin: 11/07/18 21:45 Dose: 1 gm Enoxaparin Sodium (Lovenox) 40 mg SUBCUT DAILY REPLACED BY [facility] Last Admin: 11/07/18 23:58 Dose: 40 mg Sodium Chloride (Normal Saline 0.9%) 1,000 mls @ 1,000 mls/hr IV BOLUS ONE Stop: 11/07/18 21:31 Last Infusion: 11/07/18 22:24 Dose: 0 mls/hr Admin: 11/07/18 20:56 Dose: 1,000 mls/hr Vital Signs - 8 hr 11/07/18 22:40 11/07/18 23:49 11/07/18 23:52 Temperature 97.5 F L 97.7 F Pulse Rate 111 H 105 H Respiratory Rate 18 18 Blood Pressure 143/67 H 138/67 Pulse Oximetry 99 98 98 11/08/18 04:16 Temperature 98.0 F Pulse Rate 123 H Respiratory Rate 20 Blood Pressure 133/63 Pulse Oximetry 95 MDM - Extremity (Nontraumatic) <Ita Lynne PA-C - Last Filed: 11/07/18 21:57> Lab Data Result diagrams: 11/07/18 19:52 11/07/18 19:52 Lab Results 11/07/18 11/07/18 11/07/18 Range/Units 19:52 19:52 19:52 WBC 8.3 (4.5-11.0) X10^3/uL RBC 4.76 (4.5-5.9) X10^6/uL Hgb 14.8 (13.5-17.5) g/dL Hct 44.6 (41-53) % MCV 93.8 (80-100) fL MCH 31.1 (26-34) PG MCHC 33.1 (30-36) % RDW 12.8 (11.6-14.8) % Plt Count 221 (150-400) X10^3/uL Neut % (Auto) 71.4 (50-75) % Lymph % (Auto) 19.3 L (25-40) % [place] % (Auto) 6.7 (3-14) % Eos % (Auto) 1.7 L (2-4) % Baso % (Auto) 0.9 (0-2) % Neut # (Auto) 5900 (2160-1139) /uL Lymph # (Auto) 1600 (7369-5931) /uL [place] # (Auto) 600 (0-900) /uL Eos # (Auto) 100 (0-450) /uL Baso # (Auto) 100 (0-100) /uL PT 10.0 L (10.1-12.7) SECONDS INR 0.9 (0.9-1.3) APTT 28 (26.4-36.2) SECONDS D-Dimer (<230) ng/mL VBG pH (7.33-7.43) VBG pCO2 (45-50) mmHg VBG pO2 (35-45) mmHg VBG HCO3 (23-28) mmol/L VBG Total CO2 (24-29) mmol/L VBG O2 Saturation (70-75) % VBG Base Excess (0-4) mmol/L Sodium 131 L (137-145) mmol/L Potassium 4.8 (3.4-5.1) mmol/L Chloride 94 L (98-107) mmol/L Carbon Dioxide 29 (22-32) mmol/L BUN 31 H (9-20) mg/dL Creatinine 1.00 (0.66-1.25) mg/dL Estimated GFR > 60.0 (>60) mL/min BUN/Creatinine Ratio 31.0 H (6-22) Glucose 583 H* (70-100) mg/dL Lactate (0.7-2.1) mmol/L Calcium 10.2 (8.4-10.2) mg/dL Total Bilirubin 0.3 (0.2-1.3) mg/dL AST 24 (17-59) IU/L ALT 39 (21-72) IU/L Alkaline Phosphatase 149 H (38-126) U/L Total Protein 7.2 (6.3-8.2) g/dL Albumin 4.0 (3.5-5.0) g/dL Globulin 3.2 (1.7-4.1) g/dL Albumin/Globulin Ratio 1.3 (1.0-2.8) Procalcitonin (<0.5) ng/mL Urine Color Urine Appearance Urine pH (4.5-8.0) Ur Specific Kimberly (1.000-1.035) Urine Protein (Negative) Urine Glucose (UA) (Negative) g/dL Urine Ketones (NEGATIVE) Urine Occult Blood (Negative) Urine Nitrate (Negative) Urine Bilirubin (NEGATIVE) Urine Urobilinogen (0.2) E.U./dL Ur Leukocyte Esterase (NEGATIVE) Urine RBC (0-5/HPF) Urine WBC (0-5/HPF) Urine Bacteria (None) Ur Culture Indicated? Micro UA Comment Urine Opiates Screen (Negative) Ur Oxycodone Screen (Negative) Urine Methadone Screen (Negative) Ur Barbiturates Screen (Negative) U Tricyclic Antidepress (Negative) Ur Phencyclidine Scrn (Negative) Ur Amphetamines Screen (Negative) U Methamphetamines Scrn (Negative) Ur MDMA Scrn (Ecstasy) (Negative) U Benzodiazepines Scrn (Negative) Urine Cocaine Screen (Negative) U Marijuana (THC) Screen (Negative) Ketones (<0.27) mmol/L 11/07/18 11/07/18 11/07/18 Range/Units 19:52 19:52 19:52 WBC (4.5-11.0) X10^3/uL RBC (4.5-5.9) X10^6/uL Hgb (13.5-17.5) g/dL Hct (41-53) % MCV (80-100) fL MCH (26-34) PG MCHC (30-36) % RDW (11.6-14.8) % Plt Count (150-400) X10^3/uL Neut % (Auto) (50-75) % Lymph % (Auto) (25-40) % [place] % (Auto) (3-14) % Eos % (Auto) (2-4) % Baso % (Auto) (0-2) % Neut # (Auto) (4557-5936) /uL Lymph # (Auto) (0294-0965) /uL [place] # (Auto) (0-900) /uL Eos # (Auto) (0-450) /uL Baso # (Auto) (0-100) /uL PT (10.1-12.7) SECONDS INR (0.9-1.3) APTT (26.4-36.2) SECONDS D-Dimer 245 H (<230) ng/mL VBG pH (7.33-7.43) VBG pCO2 (45-50) mmHg VBG pO2 (35-45) mmHg VBG HCO3 (23-28) mmol/L VBG Total CO2 (24-29) mmol/L VBG O2 Saturation (70-75) % VBG Base Excess (0-4) mmol/L Sodium (137-145) mmol/L Potassium (3.4-5.1) mmol/L Chloride (98-107) mmol/L Carbon Dioxide (22-32) mmol/L BUN (9-20) mg/dL Creatinine (0.66-1.25) mg/dL Estimated GFR (>60) mL/min BUN/Creatinine Ratio (6-22) Glucose (70-100) mg/dL Lactate 1.0 (0.7-2.1) mmol/L Calcium (8.4-10.2) mg/dL Total Bilirubin (0.2-1.3) mg/dL AST (17-59) IU/L ALT (21-72) IU/L Alkaline Phosphatase (38-126) U/L Total Protein (6.3-8.2) g/dL Albumin (3.5-5.0) g/dL Globulin (1.7-4.1) g/dL Albumin/Globulin Ratio (1.0-2.8) Procalcitonin (<0.5) ng/mL Urine Color Urine Appearance Urine pH (4.5-8.0) Ur Specific Kimberly (1.000-1.035) Urine Protein (Negative) Urine Glucose (UA) (Negative) g/dL Urine Ketones (NEGATIVE) Urine Occult Blood (Negative) Urine Nitrate (Negative) Urine Bilirubin (NEGATIVE) Urine Urobilinogen (0.2) E.U./dL Ur Leukocyte Esterase (NEGATIVE) Urine RBC (0-5/HPF) Urine WBC (0-5/HPF) Urine Bacteria (None) Ur Culture Indicated? Micro UA Comment Urine Opiates Screen (Negative) Ur Oxycodone Screen (Negative) Urine Methadone Screen (Negative) Ur Barbiturates Screen (Negative) U Tricyclic Antidepress (Negative) Ur Phencyclidine Scrn (Negative) Ur Amphetamines Screen (Negative) U Methamphetamines Scrn (Negative) Ur MDMA Scrn (Ecstasy) (Negative) U Benzodiazepines Scrn (Negative) Urine Cocaine Screen (Negative) U Marijuana (THC) Screen (Negative) Ketones 0.16 (<0.27) mmol/L 11/07/18 11/07/18 11/07/18 Range/Units 19:52 23:25 Unknown WBC (4.5-11.0) X10^3/uL RBC (4.5-5.9) X10^6/uL Hgb (13.5-17.5) g/dL Hct (41-53) % MCV (80-100) fL MCH (26-34) PG MCHC (30-36) % RDW (11.6-14.8) % Plt Count (150-400) X10^3/uL Neut % (Auto) (50-75) % Lymph % (Auto) (25-40) % [place] % (Auto) (3-14) % Eos % (Auto) (2-4) % Baso % (Auto) (0-2) % Neut # (Auto) (0863-1202) /uL Lymph # (Auto) (7051-8266) /uL [place] # (Auto) (0-900) /uL Eos # (Auto) (0-450) /uL Baso # (Auto) (0-100) /uL PT (10.1-12.7) SECONDS INR (0.9-1.3) APTT (26.4-36.2) SECONDS D-Dimer (<230) ng/mL VBG pH 7.33 (7.33-7.43) VBG pCO2 56.0 H (45-50) mmHg VBG pO2 32 L (35-45) mmHg VBG HCO3 30 H (23-28) mmol/L VBG Total CO2 31 H (24-29) mmol/L VBG O2 Saturation 56 L (70-75) % VBG Base Excess 4.0 (0-4) mmol/L Sodium (137-145) mmol/L Potassium (3.4-5.1) mmol/L Chloride (98-107) mmol/L Carbon Dioxide (22-32) mmol/L BUN (9-20) mg/dL Creatinine (0.66-1.25) mg/dL Estimated GFR (>60) mL/min BUN/Creatinine Ratio (6-22) Glucose (70-100) mg/dL Lactate (0.7-2.1) mmol/L Calcium (8.4-10.2) mg/dL Total Bilirubin (0.2-1.3) mg/dL AST (17-59) IU/L ALT (21-72) IU/L Alkaline Phosphatase (38-126) U/L Total Protein (6.3-8.2) g/dL Albumin (3.5-5.0) g/dL Globulin (1.7-4.1) g/dL Albumin/Globulin Ratio (1.0-2.8) Procalcitonin < 0.05 (<0.5) ng/mL Urine Color Straw Urine Appearance Clear Urine pH 6.0 (4.5-8.0) Ur Specific Kimberly 1.010 (1.000-1.035) Urine Protein Negative (Negative) Urine Glucose (UA) 2+ H (Negative) g/dL Urine Ketones Negative (NEGATIVE) Urine Occult Blood Negative (Negative) Urine Nitrate Negative (Negative) Urine Bilirubin Negative (NEGATIVE) Urine Urobilinogen 0.2 (0.2) E.U./dL Ur Leukocyte Esterase Negative (NEGATIVE) Urine RBC None seen (0-5/HPF) Urine WBC None seen (0-5/HPF) Urine Bacteria None seen (None) Ur Culture Indicated? Cult not indicated Micro UA Comment Microscopic normal Urine Opiates Screen (Negative) Ur Oxycodone Screen (Negative) Urine Methadone Screen (Negative) Ur Barbiturates Screen (Negative) U Tricyclic Antidepress (Negative) Ur Phencyclidine Scrn (Negative) Ur Amphetamines Screen (Negative) U Methamphetamines Scrn (Negative) Ur MDMA Scrn (Ecstasy) (Negative) U Benzodiazepines Scrn (Negative) Urine Cocaine Screen (Negative) U Marijuana (THC) Screen (Negative) Ketones (<0.27) mmol/L 11/07/18 Range/Units Unknown WBC (4.5-11.0) X10^3/uL RBC (4.5-5.9) X10^6/uL Hgb (13.5-17.5) g/dL Hct (41-53) % MCV (80-100) fL MCH (26-34) PG MCHC (30-36) % RDW (11.6-14.8) % Plt Count (150-400) X10^3/uL Neut % (Auto) (50-75) % Lymph % (Auto) (25-40) % [place] % (Auto) (3-14) % Eos % (Auto) (2-4) % Baso % (Auto) (0-2) % Neut # (Auto) (5117-6628) /uL Lymph # (Auto) (7626-3488) /uL [place] # (Auto) (0-900) /uL Eos # (Auto) (0-450) /uL Baso # (Auto) (0-100) /uL PT (10.1-12.7) SECONDS INR (0.9-1.3) APTT (26.4-36.2) SECONDS D-Dimer (<230) ng/mL VBG pH (7.33-7.43) VBG pCO2 (45-50) mmHg VBG pO2 (35-45) mmHg VBG HCO3 (23-28) mmol/L VBG Total CO2 (24-29) mmol/L VBG O2 Saturation (70-75) % VBG Base Excess (0-4) mmol/L Sodium (137-145) mmol/L Potassium (3.4-5.1) mmol/L Chloride (98-107) mmol/L Carbon Dioxide (22-32) mmol/L BUN (9-20) mg/dL Creatinine (0.66-1.25) mg/dL Estimated GFR (>60) mL/min BUN/Creatinine Ratio (6-22) Glucose (70-100) mg/dL Lactate (0.7-2.1) mmol/L Calcium (8.4-10.2) mg/dL Total Bilirubin (0.2-1.3) mg/dL AST (17-59) IU/L ALT (21-72) IU/L Alkaline Phosphatase (38-126) U/L Total Protein (6.3-8.2) g/dL Albumin (3.5-5.0) g/dL Globulin (1.7-4.1) g/dL Albumin/Globulin Ratio (1.0-2.8) Procalcitonin (<0.5) ng/mL Urine Color Urine Appearance Urine pH (4.5-8.0) Ur Specific Kimberly (1.000-1.035) Urine Protein (Negative) Urine Glucose (UA) (Negative) g/dL Urine Ketones (NEGATIVE) Urine Occult Blood (Negative) Urine Nitrate (Negative) Urine Bilirubin (NEGATIVE) Urine Urobilinogen (0.2) E.U./dL Ur Leukocyte Esterase (NEGATIVE) Urine RBC (0-5/HPF) Urine WBC (0-5/HPF) Urine Bacteria (None) Ur Culture Indicated? Micro UA Comment Urine Opiates Screen Negative (Negative) Ur Oxycodone Screen Negative (Negative) Urine Methadone Screen Negative (Negative) Ur Barbiturates Screen Negative (Negative) U Tricyclic Antidepress Negative (Negative) Ur Phencyclidine Scrn Negative (Negative) Ur Amphetamines Screen Positive H (Negative) U Methamphetamines Scrn Positive H (Negative) Ur MDMA Scrn (Ecstasy) Negative (Negative) U Benzodiazepines Scrn Negative (Negative) Urine Cocaine Screen Negative (Negative) U Marijuana (THC) Screen Negative (Negative) Ketones (<0.27) mmol/L Point of Care Testing Glucose POC 278 Urine Dip Bedside Urine Glucose 1000 mg/dl Bedside Urine Bilirubin - Negative Bedside Urine Ketone - Negative Urine Specific Kimberly 1.015 Bedside Urine Occult Blood - Negative Bedside Urine pH 6.0 Bedside Urine Protein - Negative Bedside Urine Urobilinogen - Negative Bedside Urine Nitrite - Negative Bedside Urine Leukocytes - Negative Esterase <Jameson Tapia, DO - Last Filed: 11/08/18 04:39> Lab Data Lab Results 11/07/18 11/07/18 11/07/18 Range/Units 19:52 19:52 19:52 WBC 8.3 (4.5-11.0) X10^3/uL RBC 4.76 (4.5-5.9) X10^6/uL Hgb 14.8 (13.5-17.5) g/dL Hct 44.6 (41-53) % MCV 93.8 (80-100) fL MCH 31.1 (26-34) PG MCHC 33.1 (30-36) % RDW 12.8 (11.6-14.8) % Plt Count 221 (150-400) X10^3/uL Neut % (Auto) 71.4 (50-75) % Lymph % (Auto) 19.3 L (25-40) % [place] % (Auto) 6.7 (3-14) % Eos % (Auto) 1.7 L (2-4) % Baso % (Auto) 0.9 (0-2) % Neut # (Auto) 5900 (0976-1237) /uL Lymph # (Auto) 1600 (4549-0986) /uL [place] # (Auto) 600 (0-900) /uL Eos # (Auto) 100 (0-450) /uL Baso # (Auto) 100 (0-100) /uL PT 10.0 L (10.1-12.7) SECONDS INR 0.9 (0.9-1.3) APTT 28 (26.4-36.2) SECONDS D-Dimer (<230) ng/mL VBG pH (7.33-7.43) VBG pCO2 (45-50) mmHg VBG pO2 (35-45) mmHg VBG HCO3 (23-28) mmol/L VBG Total CO2 (24-29) mmol/L VBG O2 Saturation (70-75) % VBG Base Excess (0-4) mmol/L Sodium 131 L (137-145) mmol/L Potassium 4.8 (3.4-5.1) mmol/L Chloride 94 L (98-107) mmol/L Carbon Dioxide 29 (22-32) mmol/L BUN 31 H (9-20) mg/dL Creatinine 1.00 (0.66-1.25) mg/dL Estimated GFR > 60.0 (>60) mL/min BUN/Creatinine Ratio 31.0 H (6-22) Glucose 583 H* (70-100) mg/dL Lactate (0.7-2.1) mmol/L Calcium 10.2 (8.4-10.2) mg/dL Total Bilirubin 0.3 (0.2-1.3) mg/dL AST 24 (17-59) IU/L ALT 39 (21-72) IU/L Alkaline Phosphatase 149 H (38-126) U/L Total Protein 7.2 (6.3-8.2) g/dL Albumin 4.0 (3.5-5.0) g/dL Globulin 3.2 (1.7-4.1) g/dL Albumin/Globulin Ratio 1.3 (1.0-2.8) Procalcitonin (<0.5) ng/mL Urine Color Urine Appearance Urine pH (4.5-8.0) Ur Specific Kimberly (1.000-1.035) Urine Protein (Negative) Urine Glucose (UA) (Negative) g/dL Urine Ketones (NEGATIVE) Urine Occult Blood (Negative) Urine Nitrate (Negative) Urine Bilirubin (NEGATIVE) Urine Urobilinogen (0.2) E.U./dL Ur Leukocyte Esterase (NEGATIVE) Urine RBC (0-5/HPF) Urine WBC (0-5/HPF) Urine Bacteria (None) Ur Culture Indicated? Micro UA Comment Urine Opiates Screen (Negative) Ur Oxycodone Screen (Negative) Urine Methadone Screen (Negative) Ur Barbiturates Screen (Negative) U Tricyclic Antidepress (Negative) Ur Phencyclidine Scrn (Negative) Ur Amphetamines Screen (Negative) U Methamphetamines Scrn (Negative) Ur MDMA Scrn (Ecstasy) (Negative) U Benzodiazepines Scrn (Negative) Urine Cocaine Screen (Negative) U Marijuana (THC) Screen (Negative) Ketones (<0.27) mmol/L 11/07/18 11/07/18 11/07/18 Range/Units 19:52 19:52 19:52 WBC (4.5-11.0) X10^3/uL RBC (4.5-5.9) X10^6/uL Hgb (13.5-17.5) g/dL Hct (41-53) % MCV (80-100) fL MCH (26-34) PG MCHC (30-36) % RDW (11.6-14.8) % Plt Count (150-400) X10^3/uL Neut % (Auto) (50-75) % Lymph % (Auto) (25-40) % [place] % (Auto) (3-14) % Eos % (Auto) (2-4) % Baso % (Auto) (0-2) % Neut # (Auto) (8033-8116) /uL Lymph # (Auto) (5131-2921) /uL [place] # (Auto) (0-900) /uL Eos # (Auto) (0-450) /uL Baso # (Auto) (0-100) /uL PT (10.1-12.7) SECONDS INR (0.9-1.3) APTT (26.4-36.2) SECONDS D-Dimer 245 H (<230) ng/mL VBG pH (7.33-7.43) VBG pCO2 (45-50) mmHg VBG pO2 (35-45) mmHg VBG HCO3 (23-28) mmol/L VBG Total CO2 (24-29) mmol/L VBG O2 Saturation (70-75) % VBG Base Excess (0-4) mmol/L Sodium (137-145) mmol/L Potassium (3.4-5.1) mmol/L Chloride (98-107) mmol/L Carbon Dioxide (22-32) mmol/L BUN (9-20) mg/dL Creatinine (0.66-1.25) mg/dL Estimated GFR (>60) mL/min BUN/Creatinine Ratio (6-22) Glucose (70-100) mg/dL Lactate 1.0 (0.7-2.1) mmol/L Calcium (8.4-10.2) mg/dL Total Bilirubin (0.2-1.3) mg/dL AST (17-59) IU/L ALT (21-72) IU/L Alkaline Phosphatase (38-126) U/L Total Protein (6.3-8.2) g/dL Albumin (3.5-5.0) g/dL Globulin (1.7-4.1) g/dL Albumin/Globulin Ratio (1.0-2.8) Procalcitonin (<0.5) ng/mL Urine Color Urine Appearance Urine pH (4.5-8.0) Ur Specific Kimberly (1.000-1.035) Urine Protein (Negative) Urine Glucose (UA) (Negative) g/dL Urine Ketones (NEGATIVE) Urine Occult Blood (Negative) Urine Nitrate (Negative) Urine Bilirubin (NEGATIVE) Urine Urobilinogen (0.2) E.U./dL Ur Leukocyte Esterase (NEGATIVE) Urine RBC (0-5/HPF) Urine WBC (0-5/HPF) Urine Bacteria (None) Ur Culture Indicated? Micro UA Comment Urine Opiates Screen (Negative) Ur Oxycodone Screen (Negative) Urine Methadone Screen (Negative) Ur Barbiturates Screen (Negative) U Tricyclic Antidepress (Negative) Ur Phencyclidine Scrn (Negative) Ur Amphetamines Screen (Negative) U Methamphetamines Scrn (Negative) Ur MDMA Scrn (Ecstasy) (Negative) U Benzodiazepines Scrn (Negative) Urine Cocaine Screen (Negative) U Marijuana (THC) Screen (Negative) Ketones 0.16 (<0.27) mmol/L 11/07/18 11/07/18 11/07/18 Range/Units 19:52 23:25 Unknown WBC (4.5-11.0) X10^3/uL RBC (4.5-5.9) X10^6/uL Hgb (13.5-17.5) g/dL Hct (41-53) % MCV (80-100) fL MCH (26-34) PG MCHC (30-36) % RDW (11.6-14.8) % Plt Count (150-400) X10^3/uL Neut % (Auto) (50-75) % Lymph % (Auto) (25-40) % [place] % (Auto) (3-14) % Eos % (Auto) (2-4) % Baso % (Auto) (0-2) % Neut # (Auto) (9667-5971) /uL Lymph # (Auto) (2665-0307) /uL [place] # (Auto) (0-900) /uL Eos # (Auto) (0-450) /uL Baso # (Auto) (0-100) /uL PT (10.1-12.7) SECONDS INR (0.9-1.3) APTT (26.4-36.2) SECONDS D-Dimer (<230) ng/mL VBG pH 7.33 (7.33-7.43) VBG pCO2 56.0 H (45-50) mmHg VBG pO2 32 L (35-45) mmHg VBG HCO3 30 H (23-28) mmol/L VBG Total CO2 31 H (24-29) mmol/L VBG O2 Saturation 56 L (70-75) % VBG Base Excess 4.0 (0-4) mmol/L Sodium (137-145) mmol/L Potassium (3.4-5.1) mmol/L Chloride (98-107) mmol/L Carbon Dioxide (22-32) mmol/L BUN (9-20) mg/dL Creatinine (0.66-1.25) mg/dL Estimated GFR (>60) mL/min BUN/Creatinine Ratio (6-22) Glucose (70-100) mg/dL Lactate (0.7-2.1) mmol/L Calcium (8.4-10.2) mg/dL Total Bilirubin (0.2-1.3) mg/dL AST (17-59) IU/L ALT (21-72) IU/L Alkaline Phosphatase (38-126) U/L Total Protein (6.3-8.2) g/dL Albumin (3.5-5.0) g/dL Globulin (1.7-4.1) g/dL Albumin/Globulin Ratio (1.0-2.8) Procalcitonin < 0.05 (<0.5) ng/mL Urine Color Straw Urine Appearance Clear Urine pH 6.0 (4.5-8.0) Ur Specific Kimberly 1.010 (1.000-1.035) Urine Protein Negative (Negative) Urine Glucose (UA) 2+ H (Negative) g/dL Urine Ketones Negative (NEGATIVE) Urine Occult Blood Negative (Negative) Urine Nitrate Negative (Negative) Urine Bilirubin Negative (NEGATIVE) Urine Urobilinogen 0.2 (0.2) E.U./dL Ur Leukocyte Esterase Negative (NEGATIVE) Urine RBC None seen (0-5/HPF) Urine WBC None seen (0-5/HPF) Urine Bacteria None seen (None) Ur Culture Indicated? Cult not indicated Micro UA Comment Microscopic normal Urine Opiates Screen (Negative) Ur Oxycodone Screen (Negative) Urine Methadone Screen (Negative) Ur Barbiturates Screen (Negative) U Tricyclic Antidepress (Negative) Ur Phencyclidine Scrn (Negative) Ur Amphetamines Screen (Negative) U Methamphetamines Scrn (Negative) Ur MDMA Scrn (Ecstasy) (Negative) U Benzodiazepines Scrn (Negative) Urine Cocaine Screen (Negative) U Marijuana (THC) Screen (Negative) Ketones (<0.27) mmol/L 11/07/18 Range/Units Unknown WBC (4.5-11.0) X10^3/uL RBC (4.5-5.9) X10^6/uL Hgb (13.5-17.5) g/dL Hct (41-53) % MCV (80-100) fL MCH (26-34) PG MCHC (30-36) % RDW (11.6-14.8) % Plt Count (150-400) X10^3/uL Neut % (Auto) (50-75) % Lymph % (Auto) (25-40) % [place] % (Auto) (3-14) % Eos % (Auto) (2-4) % Baso % (Auto) (0-2) % Neut # (Auto) (5808-8573) /uL Lymph # (Auto) (3074-3914) /uL [place] # (Auto) (0-900) /uL Eos # (Auto) (0-450) /uL Baso # (Auto) (0-100) /uL PT (10.1-12.7) SECONDS INR (0.9-1.3) APTT (26.4-36.2) SECONDS D-Dimer (<230) ng/mL VBG pH (7.33-7.43) VBG pCO2 (45-50) mmHg VBG pO2 (35-45) mmHg VBG HCO3 (23-28) mmol/L VBG Total CO2 (24-29) mmol/L VBG O2 Saturation (70-75) % VBG Base Excess (0-4) mmol/L Sodium (137-145) mmol/L Potassium (3.4-5.1) mmol/L Chloride (98-107) mmol/L Carbon Dioxide (22-32) mmol/L BUN (9-20) mg/dL Creatinine (0.66-1.25) mg/dL Estimated GFR (>60) mL/min BUN/Creatinine Ratio (6-22) Glucose (70-100) mg/dL Lactate (0.7-2.1) mmol/L Calcium (8.4-10.2) mg/dL Total Bilirubin (0.2-1.3) mg/dL AST (17-59) IU/L ALT (21-72) IU/L Alkaline Phosphatase (38-126) U/L Total Protein (6.3-8.2) g/dL Albumin (3.5-5.0) g/dL Globulin (1.7-4.1) g/dL Albumin/Globulin Ratio (1.0-2.8) Procalcitonin (<0.5) ng/mL Urine Color Urine Appearance Urine pH (4.5-8.0) Ur Specific Kimberly (1.000-1.035) Urine Protein (Negative) Urine Glucose (UA) (Negative) g/dL Urine Ketones (NEGATIVE) Urine Occult Blood (Negative) Urine Nitrate (Negative) Urine Bilirubin (NEGATIVE) Urine Urobilinogen (0.2) E.U./dL Ur Leukocyte Esterase (NEGATIVE) Urine RBC (0-5/HPF) Urine WBC (0-5/HPF) Urine Bacteria (None) Ur Culture Indicated? Micro UA Comment Urine Opiates Screen Negative (Negative) Ur Oxycodone Screen Negative (Negative) Urine Methadone Screen Negative (Negative) Ur Barbiturates Screen Negative (Negative) U Tricyclic Antidepress Negative (Negative) Ur Phencyclidine Scrn Negative (Negative) Ur Amphetamines Screen Positive H (Negative) U Methamphetamines Scrn Positive H (Negative) Ur MDMA Scrn (Ecstasy) Negative (Negative) U Benzodiazepines Scrn Negative (Negative) Urine Cocaine Screen Negative (Negative) U Marijuana (THC) Screen Negative (Negative) Ketones (<0.27) mmol/L Point of Care Testing Glucose POC 278 Urine Dip Bedside Urine Glucose 1000 mg/dl Bedside Urine Bilirubin - Negative Bedside Urine Ketone - Negative Urine Specific Kimberly 1.015 Bedside Urine Occult Blood - Negative Bedside Urine pH 6.0 Bedside Urine Protein - Negative Bedside Urine Urobilinogen - Negative Bedside Urine Nitrite - Negative Bedside Urine Leukocytes - Negative Esterase Discharge Plan Departure Patient Disposition: Admitted as Observation Clinical Impression: Cellulitis Qualifiers: Site of cellulitis: extremity Site of cellulitis of extremity: lower extremity Laterality: right Qualified Code(s): L03.115 - Cellulitis of right lower limb Uncontrolled diabetes mellitus Qualifiers: Diabetes mellitus type: type 2 Glycemic state: with hyperglycemia Qualified Code(s): E11.65 - Type 2 diabetes mellitus with hyperglycemia Discharge Date/Time: 11/07/18 22:35 Interventions: ED Discharge Assessment Last Done: 11/07/18 22:36 Admit Date/Time: 11/07/18 22:17 Admit Provider: Tyron Joyce <Jameson Tapia DO - Last Filed: 11/08/18 04:39> Cosign ED Attending Juan A Attestation: I was immediately available in the department for consultation. Documentation has been reviewed. I agree with assessment and plan.
[2018-11-07 20:03] LABS: Add Manual Diff / Slide Review NO; Basophils Absolute Auto 100 /uL (0-100); Basophils Percent Auto 0.9 % (0-2); Eosinophils Absolute Auto 100 /uL (0-450); Eosinophils Percent Auto 1.7 % (2-4); Hematocrit 44.6 % (41-53); Hemoglobin 14.8 g/dL (13.5-17.5); Lymphocytes Absolute Auto 1600 /uL (1100-4500); Lymphocytes Percent Auto 19.3 % (25-40); Mean Corpuscular HGB Conc 33.1 % (30-36); Mean Corpuscular Hemoglobin 31.1 PG (26-34); Mean Corpuscular Volume 93.8 fL (80-100); Monocytes Absolute Auto 600 /uL (0-900); Monocytes Percent Auto 6.7 % (3-14); Neutrophils Absolute Auto 5900 /uL (1500-7000); Neutrophils Percent Auto 71.4 % (50-75); Platelet Count 221 X10^3/uL (150-400); Red Blood Cell Count 4.76 X10^6/uL (4.5-5.9); Red Cell Distribution Width 12.8 % (11.6-14.8); White Blood Cell Count 8.3 X10^3/uL (4.5-11.0)
[2018-11-07 20:13] LABS: INR 0.9 (0.9-1.3)
[2018-11-07 20:14] LABS: Alanine Aminotransferase 39 IU/L (21-72); Albumin Globulin Ratio 1.3 (1.0-2.8); Alkaline Phosphatase 149 U/L (38-126); Aspartate Aminotransferase 24 IU/L (17-59); Bilirubin Total 0.3 mg/dL (0.2-1.3); Blood Urea Nitrogen 31 mg/dL (9-20); Calcium 10.2 mg/dL (8.4-10.2); Carbon Dioxide 29 mmol/L (22-32); Chloride 94 mmol/L (98-107); Estimated Glomerular Filt Rate > 60.0 mL/min (>60); Globulin 3.2 g/dL (1.7-4.1); HEMOLYSIS < 15 (0-50); Potassium 4.8 mmol/L (3.4-5.1); Sodium 131 mmol/L (137-145); Total Protein 7.2 g/dL (6.3-8.2)
[2018-11-07 20:15] LABS: PTT Partial Thromboplastin Tim 28 SECONDS (26.4-36.2)
[2018-11-07 20:21] VITALS: BP 140/60; PULSE 103; RESP 18; O2SAT 99
[2018-11-07 20:30] LABS: Glucose 583 mg/dL (70-100)
--- NOTE | 2018-11-07 20:30 | PC.NURSE ---
critical lab reported 583. Given to primary SHANNAN Beltran.
[2018-11-07] MEDS: SODIUM CHLORIDE 0.9% 1,000 ML 1000 ML IV (20:56)
[2018-11-07 21:05] LABS: Ketones (Beta-Hydroxybutyrate) 0.16 mmol/L (<0.27)
[2018-11-07] MEDS: CEFAZOLIN 1 GM VIAL IV (21:45)
[2018-11-07 22:09] LABS: D Dimer 245 ng/mL (<230)
[2018-11-07 22:40] VITALS: BP 143/67; PULSE 111; RESP 18; TEMP 36.4; O2SAT 99
--- NOTE | 2018-11-07 22:43 | PM.HP.1 ---
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 Patient provides differing histories to different providers. Patient informs me that he has had increasing pain for 1 week with increased pain and swelling of the right ankle prompting him to present to the ER today. He indicates he has not been taking metformin for some time but took it this morning when he ?found? his medication due to his increasing leg pain. He rates his pain as 1/10 continuous ache that goes to 5 to 6/10 on palpation. He apparently does not check his blood sugars at home. He denies other medications at the time of interview but mentions use of gabapentin to the ER provider. Reports no history trauma or injury has had no recent complaints of cold or flu symptoms, fevers or chills, chest pain or palpitations. He does endorse a history of dyspnea on exertion as well as impaired ambulation related to his right leg pain and neuropathy. He reports no abdominal pain, nausea vomiting and has regular stooling habits without constipation or diarrhea. Reports excessive thirst with frequent urination with nocturia approximately 6 times nightly. Patient admits smoking meth 3 times daily with his last use 3:00 p.m. today. The patient indicates he does not have a primary care provider. Patient arrived in the ER at 6:39 p.m. this evening. His vital signs were as follows with a temperature of 98.4?, blood pressure 138/72, tachycardic at 1:14 a.m., respirations 16 and nonlabored with a room air saturation 97%. Lab work was completed blood cultures are drawn. On CBC has a normal white count 8.3 without a left shift, H&H is 14.8 and 44.6 with platelets 221. Has an INR of 1.9, lactate of 1.0. On chemistry is sodium is somewhat low at 131 with a potassium 4.8. He has a BUN of 31 and a creatinine of 1.0 and blood glucose of 583. His LFTs are within normal range although his alkaline phosphatase is mildly elevated at 149. His elevated blood sugars treated with normal saline bolus and is given a g cefazolin IV. Following examination a D-dimer is requested as well as a procalcitonin. The patient is admitted to the possible for uncontrolled diabetes with hyperglycemia, dehydration, non compliant with medication and substance abuse. Patient History Medical History Current smoker (Acute) Dyspnea on exertion (Acute) Hyperglycemia (Acute) Methamphetamine dependence, continuous (Acute) Diabetic neuropathy (Chronic) Non-insulin dependent type 2 diabetes mellitus (Chronic) History of Wilms' tumor (Resolved) Surgical History S/p nephrectomy (Resolved) Social History Smoking Status: Current every day smoker Family & Social History Tobacco & Substance use: Smoking Status Current every day smoker alcohol intake frequency 0-2 drinks per day Substance Use Type methamphetamine Comment: The patient currently resides in a 5th wheel trailer with his significant other who have been together for 16 years. The patient's parents are both living with his father having diabetes and mother lupus. He has a brother with unknown medical history who is estranged. 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 today Advanced directives: Patient is to be a full code and designates his significant other, Padma, to be his surrogate decision maker. Meds Home Medications Medication Instructions Recorded Confirmed Type metformin 1,000 mg PO BID 11/07/18 11/07/18 History Allergies Allergy/AdvReac Type Severity Reaction Status Date / Time No Known Drug Allergies Allergy Verified 11/07/18 20:52 Review of Systems Review of Systems All systems reviewed & are unremarkable except as noted in HPI and below Exam Vital Signs (past 8 hours): - 11/07/18 18:39 11/07/18 20:21 Temperature 98.4 F Pulse Rate 115 H 103 H Respiratory Rate 16 18 Blood Pressure 138/72 Blood Pressure [Right Arm] 140/60 Pulse Oximetry 97 99 Oxygen Delivery Method Room Air Narrative Exam Narrative: General: Middle-aged gentleman appearing older than his stated age, well developed well nourished, in no acute distress Skin: Warm, dry, pink, no rashes, healing wound left hand, scabbed wound right medial lower leg without swelling or drainage, mild redness bilateral lower extremities, warmth and swelling but ankle and foot HEENT: Normocephalic, atraumatic, PERRLA, EOMs intact without nystagmus, conjunctiva moist, sclera is anicteric, hearing grossly normal, mild sinus tenderness to percussion, no rhinorrhea, oropharynx is dry and pink without lesions or exudate, poor dentition with missing teeth, uvula midline, posterior pharynx without inflammation, no cervical lymphadenopathy Neck: Supple, no masses, no thyromegaly, trachea midline, no carotid bruits or JVD, no supraclavicular lymphadenopathy Cardiac: Tachycardic rate and regular rhythm, S1-S2, 1/6 systolic murmur, no gallops or rubs, 2+ radial pulse, 1+ dorsalis pedis pulse, capillary refill is brisk, 1+ edema right foot Chest: Symmetrical movement, no pain on AP or lateral compression, breathing non labored, no cough present, BS equal bilateral without coarseness, crackles or wheezes Abdomen: Soft, no tenderness or guarding, no masses or organomegaly, negative Cherry sign, no flank or suprapubic pain, no peritoneal signs, BS normal. Back: Normal curvature, no tenderness to palpation, no CVA tenderness on percussion Extremities: Pain right foot with plantar flexion, pain on palpation right ankle, muscular ache right calf on palpation, no synovial effusions or deformities, strength 5/5 and symmetrical Neuro: AAOx4, cranial nerves II-XII grossly intact, bilateral lower extremity neuropathy to mid lower leg on the left and level of tibial tubercle on the right Psych: Patient with flat affect, guarded behavior requiring prodding to obtain answers to history questions, denies depression symptoms, stable mood and congruent affect Objective Labs Result Diagrams: 11/07/18 19:52 11/07/18 19:52 Labs: Laboratory Results - last 24 hr 11/07/18 11/07/18 02 19:52 19:52 19:52 WBC 8.3 RBC 4.76 Hgb 14.8 Hct 44.6 MCV 93.8 MCH 31.1 MCHC 33.1 RDW 12.8 Plt Count 221 Neut % (Auto) 71.4 Lymph % (Auto) 19.3 L [place] % (Auto) 6.7 Eos % (Auto) 1.7 L Baso % (Auto) 0.9 Neut # (Auto) 5900 Lymph # (Auto) 1600 [place] # (Auto) 600 Eos # (Auto) 100 Baso # (Auto) 100 PT 10.0 L INR 0.9 APTT 28 D-Dimer Sodium 131 L Potassium 4.8 Chloride 94 L Carbon Dioxide 29 BUN 31 H Creatinine 1.00 Estimated GFR > 60.0 BUN/Creatinine Ratio 31.0 H Glucose 583 H* Lactate Calcium 10.2 Total Bilirubin 0.3 AST 24 ALT 39 Alkaline Phosphatase 149 H Total Protein 7.2 Albumin 4.0 Globulin 3.2 Albumin/Globulin Ratio 1.3 Ketones 11/07/18 11/07/18 11/07/18 19:52 19:52 19:52 WBC RBC Hgb Hct MCV MCH MCHC RDW Plt Count Neut % (Auto) Lymph % (Auto) [place] % (Auto) Eos % (Auto) Baso % (Auto) Neut # (Auto) Lymph # (Auto) [place] # (Auto) Eos # (Auto) Baso # (Auto) PT INR APTT D-Dimer 245 H Sodium Potassium Chloride Carbon Dioxide BUN Creatinine Estimated GFR BUN/Creatinine Ratio Glucose Lactate 1.0 Calcium Total Bilirubin AST ALT Alkaline Phosphatase Total Protein Albumin Globulin Albumin/Globulin Ratio Ketones 0.16 Assessment & Plan Assessment & Plan narrative: This is a 48-year-old male patient was admitted the hospital with uncontrolled diabetes with complications and cellulitis. 1. Diabetes type 2, uncontrolled acute -diabetes complicated by bilateral lower extremity neuropathy -the patient endorses a longstanding excessive thirst and frequent urination -he has been noncompliant with metformin for indeterminate time -blood sugar is 583 on admission to the ER for which he received a 1 L bolus saline, will continue normal saline at 100 mL/hr -will obtain Accu-Cheks ACHS and cover with medium dose sliding scale insulin -constant carbohydrate diet -will obtain hemoglobin A1c -diabetic teaching provided reinforcing need for daily medication and daily foot checks 2. Right foot cellulitis, acute -patient does not perform daily foot checks and has no visible wound -warmth and swelling left ankle and foot with pain plantar surface -patient received 1 g Ancef IV in the emergency department, will continue cefazolin IV -will obtain a procalcitonin 3. Right calf pain, acute -negative Homans sign with pain and foot on dorsiflexion and no calf pain -D-dimer requested found to be mildly elevated at 245, Well's criteria indicates the patient is at moderate risk for DVT -patient started on Lovenox -will obtain venous Doppler of the right lower extremity 4. Systolic heart murmur, present on admission -the patient reports no knowledge of heart murmur and denies chest pain but does endorse dyspnea on exertion -will obtain 12 lead EKG -will obtain a cardiac echo 5. Methamphetamine abuse, chronic -patient admits to methamphetamine 3 times daily -referred to social worker psychiatric to follow up to obtain community resources 6. Current smoker, chronic -patient currently consumes 1 carton of cigarettes per month and is not interested in smoking cessation -greater than 3 and less than 10 min spent on counseling for smoking cessation The patient is admitted to the hospital related to complexity of symptoms and potential for complications. Patient will be observation with expected length of stay less than 2 midnights. Scores GCS Kareen coma scale eye opening: Spontaneous [place] coma scale verbal response: Orientated Pinch coma scale motor response: Obey commands Pinch coma scale total score: 15
[2018-11-07 22:48] LABS: Procalcitonin < 0.05 ng/mL (<0.5)
[2018-11-07] MEDS: SODIUM CHLORIDE 0.9% 1,000 ML 100 ML IV (22:49)
--- NOTE | 2018-11-07 22:55 | P.HP_ITS ---
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 Patient provides differing histories to different providers. Patient informs me that he has had increasing pain for 1 week with increased pain and swelling of the right ankle prompting him to present to the ER today. He indicates he has not been taking metformin for some time but took it this morning when he ?found? his medication due to his increasing leg pain. He rates his pain as 1/10 continuous ache that goes to 5 to 6/10 on palpation. He apparently does not check his blood sugars at home. He denies other medications at the time of interview but mentions use of gabapentin to the ER provider. Reports no history trauma or injury has had no recent complaints of cold or flu symptoms, fevers or chills, chest pain or palpitations. He does endorse a history of dyspnea on exertion as well as impaired ambulation related to his right leg pain and neuropathy. He reports no abdominal pain, nausea vomiting and has regular stooling habits without constipation or diarrhea. Reports excessive thirst with frequent urination with nocturia approximately 6 times nightly. Patient admits smoking meth 3 times daily with his last use 3:00 p.m. today. The patient indicates he does not have a primary care provider. Patient arrived in the ER at 6:39 p.m. this evening. His vital signs were as follows with a temperature of 98.4?, blood pressure 138/72, tachycardic at 1:14 a.m., respirations 16 and nonlabored with a room air saturation 97%. Lab work was completed blood cultures are drawn. On CBC has a normal white count 8.3 without a left shift, H&H is 14.8 and 44.6 with platelets 221. Has an INR of 1.9, lactate of 1.0. On chemistry is sodium is somewhat low at 131 with a potassium 4.8. He has a BUN of 31 and a creatinine of 1.0 and blood glucose of 583. His LFTs are within normal range although his alkaline phosphatase is mildly elevated at 149. His elevated blood sugars treated with normal saline bolus and is given a g cefazolin IV. Following examination a D-dimer is requested as well as a procalcitonin. The patient is admitted to the possible for uncontrolled diabetes with hyperglycemia, dehydration, non compliant with medication and substance abuse. Patient History Medical History Current smoker (Acute) Dyspnea on exertion (Acute) Hyperglycemia (Acute) Methamphetamine dependence, continuous (Acute) Diabetic neuropathy (Chronic) Non-insulin dependent type 2 diabetes mellitus (Chronic) History of Wilms' tumor (Resolved) Surgical History S/p nephrectomy (Resolved) Social History Smoking Status: Current every day smoker Family & Social History Tobacco & Substance use: Smoking Status Current every day smoker alcohol intake frequency 0-2 drinks per day Substance Use Type methamphetamine Comment: The patient currently resides in a 5th wheel trailer with his nery neda other who have been together for 16 years. The patient's parents are both living with his father having diabetes and mother lupus. He has a brother with unknown medical history who is estranged. 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 today Advanced directives: Patient is to be a full code and design[facility], Padma, to be his surrogate decision maker. Meds Home Medications Medication Instructions Recorded Confirmed Type metformin 1,000 mg PO BID 11/07/18 11/07/18 History Allergies Allergy/AdvReac Type Severity Reaction Status Date / Time No Known Drug Allergies Allergy Verified 11/07/18 20:52 Review of Systems Review of Systems All systems reviewed & are unremarkable except as noted in HPI and below Exam Vital Signs (past 8 hours): - 11/07/18 18:39 11/07/18 20:21 Temperature 98.4 F Pulse Rate 115 H 103 H Respiratory Rate 16 18 Blood Pressure 138/72 Blood Pressure [Right Arm] 140/60 Pulse Oximetry 97 99 Oxygen Delivery Method Room Air Narrative Exam Narrative: General: Middle-aged gentleman appearing older than his stated age, well developed well nourished, in no acute distress Skin: Warm, dry, pink, no rashes, healing wound left hand, scabbed wound right medial lower leg without swelling or drainage, mild redness bilateral lower extremities, warmth and swelling but ankle and foot HEENT: Normocephalic, atraumatic, PERRLA, EOMs intact without nystagmus, conjunctiva moist, sclera is anicteric, hearing grossly normal, mild sinus tenderness to percussion, no rhinorrhea, oropharynx is dry and pink without l esions or exudate, poor dentition with missing teeth, uvula midline, posterior pharynx without inflammation, no cervical lymphadenopathy Neck: Supple, no masses, no thyromegaly, trachea midline, no carotid bruits or JVD, no supraclavicular lymphadenopathy Cardiac: Tachycardic rate and regular rhythm, S1-S2, 1/6 systolic murmur, no gallops or rubs, 2+ radial pulse, 1+ dorsalis pedis pulse, capillary refill is brisk, 1+ edema right foot Chest: Symmetrical movement, no pain on AP or lateral compression, breathing non labored, no cough present, BS equal bilateral without coarseness, crackles or wheezes Abdomen: Soft, no tenderness or guarding, no masses or organomegaly, negative Cherry sign, no flank or suprapubic pain, no peritoneal signs, BS normal. Back: Normal curvature, no tenderness to palpation, no CVA tenderness on percussion Extremities: Pain right foot with plantar flexion, pain on palpation right ankle, muscular ache right calf on palpation, no synovial effusions or deform ities, strength 5/5 and symmetrical Neuro: AAOx4, cranial nerves II-XII grossly intact, bilateral lower extremity neuropathy to mid lower leg on the left and level of tibial tubercle on the right Psych: Patient with flat affect, guarded behavior requiring prodding to obtain answers to history questions, denies depression symptoms, stable mood and congruent affect Objective Labs Result Diagrams: 11/07/18 19:52 11/07/18 19:52 Labs: Laboratory Results - last 24 hr 11/07/18 11/07/18 11/07/18 19:52 19:52 19:52 WBC 8.3 RBC 4.76 Hgb 14.8 Hct 44.6 MCV 93.8 MCH 31.1 MCHC 33.1 RDW 12.8 Plt Count 221 Neut % (Auto) 71.4 Lymph % (Auto) 19.3 L [place] % (Auto) 6.7 Eos % (Auto) 1.7 L Baso % (Auto) 0.9 Neut # (Auto) 5900 Lymph # (Auto) 1600 [place] # (Auto) 600 Eos # (Auto) 100 Baso # (Auto) 100 PT 10.0 L INR 0.9 APTT 28 D-Dimer Sodium 131 L Potassium 4.8 Chloride 94 L Carbon Dioxide 29 BUN 31 H Creatinine 1.00 Estimated GFR > 60.0 BUN/Creatinine Ratio 31.0 H Glucose 583 H* Lactate Calcium 10.2 Total Bilirubin 0.3 AST 24 ALT 39 Alkaline Phosphatase 149 H Total Protein 7.2 Albumin 4.0 Globulin 3.2 Albumin/Globulin Ratio 1.3 Ketones 11/07/18 11/07/18 11/07/18 19:52 19:52 19:52 WBC RBC Hgb Hct MCV MCH MCHC RDW Plt Count Neut % (Auto) Lymph % (Auto) [place] % (Auto) Eos % (Auto) Baso % (Auto) Neut # (Auto) Lymph # (Auto) [place] # (Auto) Eos # (Auto) Baso # (Auto) PT INR APTT D-Dimer 245 H Sodium Potassium Chloride Carbon Dioxide BUN Creatinine Estimated GFR BUN/Creatinine Ratio Glucose Lactate 1.0 Calcium Total Bilirubin AST ALT Alkaline Phosphatase Total Protein Albumin Globulin Albumin/Globulin Ratio Ketones 0.16 Assessment & Plan Assessment & Plan narrative: This is a 48-year-old male patient was admitted the hospital with uncontrolled diabetes with complications and cellulitis. 1. Diabetes type 2, uncontrolled acute -diabetes complicated by bilateral lower extremity neuropathy -the patient endorses a longstanding excessive thirst and frequent urination -he has been noncompliant with metformin for indeterminate time -blood sugar is 583 on admission to the ER for which he received a 1 L bolus saline, will continue normal saline at 100 mL/hr -will obtain Accu-Cheks ACHS and cover with medium dose sliding scale insulin -constant carbohydrate diet -will obtain hemoglobin A1c -diabetic teaching provided reinforcing need for daily medication and daily foot checks 2. Right foot cellulitis, acute -patient does not perform daily foot checks and has no visible wound -warmth and swelling left ankle and foot with pain plantar surface -patient received 1 g Ancef IV in the emergency department, will continue cefazolin IV -will obtain a procalcitonin 3. Right calf pain, acute -negative Homans sign with pain and foot on dorsiflexion and no calf pain -D-dimer requested found to be mildly elevated at 245, Well's criteria indicates the patient is at moderate risk for DVT -patient started on Lovenox -will obtain venous Doppler of the right lower extremity 4. Systolic heart murmur, present on admission -the patient reports no knowledge of heart murmur and denies chest pain but does endorse dyspnea on exertion -will obtain 12 lead EKG -will obtain a cardiac echo 5. Methamphetamine abuse, chronic -patient admits to methamphetamine 3 times daily -referred to social services analyst to follow up to obtain community resources 6. Current smoker, chronic -patient currently consumes 1 carton of cigarettes per month and is not interested in smoking cessation -greater than 3 and less than 10 min spent on counseling for smoking cessation The patient is admitted to the hospital related to complexity of symptoms and potential for complications. Patient will be observation with expected length of stay less than 2 midnights. Scores GCS [place]en coma scale eye opening: Spontaneous [place] coma scale verbal response: Orientated [place] coma scale motor response: Obey commands [place] coma scale total score: 15
[2018-11-07 23:18] VITALS: BMI 19.3
[2018-11-07 23:39] LABS: HCO3 VBG 30 mmol/L (23-28); Oxygen Saturation VBG 56 % (70-75); PO2 VBG 32 mmHg (35-45); Total CO2 VBG 31 mmol/L (24-29); pH VBG 7.33 (7.33-7.43)
[2018-11-07 23:49] VITALS: BP 138/67; PULSE 105; RESP 18; TEMP 36.5; O2SAT 98
[2018-11-07 23:50] LABS: Bacteria Urine None Seen; RBC Urine None Seen (0-5/HPF); WBC Urine None Seen (0-5/HPF)
[2018-11-07 23:52] VITALS: O2SAT 98
[2018-11-07 23:56] LABS: Appearance Urine UA CLEAR; Bilirubin Urine UA NEGATIVE (NEGATIVE); Glucose Urine UA 2+ g/dL (Negative); Ketones Urine UA NEGATIVE (NEGATIVE); Leukocyte Esterase Urine UA NEGATIVE (NEGATIVE); Nitrite Urine UA NEGATIVE (Negative); Occult Blood Urine UA NEGATIVE (Negative); Protein Urine UA NEGATIVE (Negative); Urobilinogen Urine UA 0.2 E.U./dL (0.2)
[2018-11-07] MEDS: ASPIRIN EC 81 MG TABLET PO (23:58)
[2018-11-07] MEDS: ENOXAPARIN 40 MG/0.4 ML SYRINGE SUBCUT (23:58)
[2018-11-07] MEDS: INSULIN ASPART 100 UNIT/ML INSULN PEN SUBCUT (23:59)
[2018-11-08] VITALS (8 sets, daily range): BP systolic 130–135; BP diastolic 60–71; PULSE 105–123; RESP 14–24; TEMP 36.6–36.9; O2SAT 95–100
[2018-11-08 00:01] LABS: Urine Amphetamines Positive (Negative); Urine Barbiturates Negative (Negative); Urine Benzodiazepines Negative (Negative); Urine Cocaine Negative (Negative); Urine MDMA Negative (Negative); Urine Methadone Negative (Negative); Urine Methamphetamines Positive (Negative); Urine Morphine/Opi cutoff 2000 Negative (Negative); Urine Oxycodone Negative (Negative); Urine Phencyclidine Negative (Negative); Urine Tetrahydrocannabinol Negative (Negative); Urine Tricyclic Antidepressant Negative (Negative)
[2018-11-08 00:04] LABS: Color Urine UA Straw; Culture Indicated Urine Cult Not Indicated; Urine Comments Microscopic Normal
[2018-11-08] MEDS: PANTOPRAZOLE 20 MG TABLET PO (06:33)
[2018-11-08] MEDS: CEFAZOLIN 1 GM/50 ML FROZ.PIGGY IV (06:34)
[2018-11-08 06:56] LABS: Cholesterol 179 mg/dL (140-199); HDL Cholesterol 81 mg/dL (40-60); LDL Cholesterol Calculated 81 mg/dL (<100); Triglycerides 83 mg/dL (35-150)
[2018-11-08 07:13] LABS: Hemoglobin A1C% w Est Avg Glu > 14.0 % (4.0-6.0)
[2018-11-08] MEDS: ENOXAPARIN 60 MG/0.6 ML SYRINGE SUBCUT (09:10)
[2018-11-08] MEDS: INSULIN ASPART 100 UNIT/ML INSULN PEN SUBCUT ×3 (09:10→17:16)
[2018-11-08] MEDS: SODIUM CHLORIDE 0.9% 1,000 ML 100 ML IV ×2 (09:10→21:45)
[2018-11-08] MEDS: ASPIRIN EC 81 MG TABLET PO (09:10)
[2018-11-08] MEDS: CEFAZOLIN 2 GM/100 ML FROZ.PIGGY IV ×2 (14:16→21:39)
--- NOTE | 2018-11-08 14:46 | CM.DANOTE ---
DCP/Assessment: Reviewed chart. Patient is a 48yr old male admitted to [facility] for uncontrolled diabetes and probable right foot cellulitis. No PCP listed. Primary payor is 1)[facility] 2)Medicaid. Met with patient and significant other/Padma at bedside. Patient with h/o diabetic non-compliance and substance abuse. Patient reports that he actively smokes methamphetamine. Patient reports no desire to quit using. Patient declines any need for community resources for substance abuse. Patient with h/o diabetes. Patient currently with no PCP. Patient blood sugars upon admit were in the 500's and A1C was 14. Patient open to accept names/numbers of physicians and clinics for outpatient f/u. P: Home when stable. Patient declines substance abuse resources. YUMI Nance Discharge Planning/Care Management CM Discharge Assessment Start: 11/08/18 14:44 Freq: Status: Active Protocol: Document 11/08/18 14:44 KJS (Rec: 11/08/18 14:46 KJS [id number]) Discharge Planning Assessment Assigned Film Vault Supervisor YUMI Nance Contact Information Padma Omi ([phone]) significant other Advance Directives? No Advance Directives on File No History Provided By Patient Significant Other Has Patient been admitted in last 30 No days? Prior Living Arrangements RV Household Members significant other Type of transporation used prior to Drives own vehicle admit Independent with ADL's Yes Is patient alert and oriented? Yes Caregiver for Another No Barriers to Discharge No Discharge Plan Home Additional Comment Provided patient with community resources for PCP and clinics. Patient declines substance abuse resources. Whiteboard Updated in Patient Room with Yes name and ext. # of Film Vault Supervisor Review Status In Process Please Provide Date Initial DC 11/08/18 Assessment Was Performed Next Review Type Continued Stay Review
--- NOTE | 2018-11-08 14:58 | PC.NURSE ---
Day shift pt denies pain. Declines nicotine patch and gum. Requests to leave hospital to go smoke a cigarette. Informed that this is not allowed by hospital policies. Pt states he wants to leave AMA and will sign form. Notified MD and after speaking with her he states he will stay as long as he can. paperwork placed in pt's paper chart. pt aware to notify staff if he wants to leave AMA still so PIV can be removed prior to d/c.
--- NOTE | 2018-11-08 17:52 | PC.NURSE ---
Addendum entered by Dorothy Jonas R.N. 11/08/18 23:48: pt slept the majority of the shift. SO at bedside. pt cooperative with staff. ambulates room per self, steady, uses urinal. ate dinner. has been calm. given multiple warm blankets and room temp adjusted. will continue to monitor. Original Note: 1500- assumed care of pt. pt has SO in room. she is asleep in the chair. pt awake and alert. cooperative at this time. OK with having nursing students. IV fluids in and tolerating. uses call light. able to manipulate the IV pole, uses urinal at bedside. cooperative. [place]. sleepy, arouses to voice. belongings and call light within reach. will continue to monitor pt for safety. discussed diabetes with patient and watching his feet. pt has minimal feeling to feet, specifically no feeling to bottom of toes (excluding big toe) to Marcus feet. 3rd to fifth metatarsal head no feeling ,marcus. can feel heel marcus. can feel instep marcus. discussed monitoring and blood sugar checks extensively. pt reports that he will need to start inspecting his feet. will continue to monitor pt for safety.
--- NOTE | 2018-11-08 18:09 | PM.PN.1 ---
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 The patient is resting in bed comfortably and in no acute distress. He endorses pain in his right foot. He denies recent trauma or injury to his right foot. He is adamant that he is going to leave the hospital in order to smoke a ?cigarette since it is against policy.? When informed of the risks of leaving AMA, he becomes more receptive to staying for several more doses of IV antibiotics but reports that he will leave in the next 12 hr. He denies headache, shortness of breath, chest pain, abdominal pain, nausea, vomiting, fever, chills, dysuria, diarrhea or constipation. He is voiding without difficulty. He is up ambulating minimally due to pain without assistance. Exam Vital Signs (past 8 hours): - 11/08/18 11:20 11/08/18 17:00 11/08/18 17:30 Temperature 97.8 F 98.2 F Pulse Rate 105 H 106 H Respiratory Rate 24 14 Blood Pressure 134/71 135/60 Pulse Oximetry 100 100 100 Oxygen Delivery Method Room Air Narrative Exam Narrative: General: Middle-aged gentleman sitting in bed and in no acute distress, thin, anxious, somewhat irrational thinking. HEENT: Normocephalic, atraumatic. External ears without defect. Pupils equal, round, and reactive to light. Anicteric sclerae, moist conjunctivae, and no lid lag. Poor dentition. Neck: Supple with full range of motion. No lymphadenopathy or thyromegaly. Cardiovascular: Regular rate and rhythm without murmurs, rubs, or gallops appreciated. Pulmonary: Clear to auscultation bilaterally without crackles, wheezes, or rhonchi. Normal respiratory effort with no use of accessory muscles. Abdomen: Soft, bowel sounds present, nontender, nondistended. No hepatosplenomegaly or masses appreciated. Extremities: No clubbing or cyanosis. Bilateral lower extremities with dry cracked skin throughout. Patient has scab on right pretibial area. Both lower extremities are erythematous R>L. No erythema or lesions on the hands. Skin: Normal temperature, turgor, and texture; no rash, ulcers, or subcutaneous nodules appreciated. Neurological: Cranial nerves grossly intact. Psychiatric: Anxious, flat affect. Alert and oriented to person, place, and time. Objective Labs Result Diagrams: 11/07/18 19:52 11/07/18 19:52 Labs: Laboratory Results - last 24 hr 11/07/18 11/07/18 11/07/18 19:52 19:52 19:52 WBC 8.3 RBC 4.76 Hgb 14.8 Hct 44.6 MCV 93.8 MCH 31.1 MCHC 33.1 RDW 12.8 Plt Count 221 Neut % (Auto) 71.4 Lymph % (Auto) 19.3 L [place] % (Auto) 6.7 Eos % (Auto) 1.7 L Baso % (Auto) 0.9 Neut # (Auto) 5900 Lymph # (Auto) 1600 [place] # (Auto) 600 Eos # (Auto) 100 Baso # (Auto) 100 PT 10.0 L INR 0.9 APTT 28 D-Dimer VBG pH VBG pCO2 VBG pO2 VBG HCO3 VBG Total CO2 VBG O2 Saturation VBG Base Excess Sodium 131 L Potassium 4.8 Chloride 94 L Carbon Dioxide 29 BUN 31 H Creatinine 1.00 Estimated GFR > 60.0 BUN/Creatinine Ratio 31.0 H Glucose 583 H* Hemoglobin A1c Lactate Calcium 10.2 Total Bilirubin 0.3 AST 24 ALT 39 Alkaline Phosphatase 149 H Total Protein 7.2 Albumin 4.0 Globulin 3.2 Albumin/Globulin Ratio 1.3 Triglycerides Cholesterol LDL Cholesterol, Calc HDL Cholesterol Procalcitonin Urine Color Urine Appearance Urine pH Ur Specific [place] Urine Protein Urine Glucose (UA) Urine Ketones Urine Occult Blood Urine Nitrate Urine Bilirubin Urine Urobilinogen Ur Leukocyte Esterase Urine RBC Urine WBC Urine Bacteria Ur Culture Indicated? Micro UA Comment Urine Opiates Screen Ur Oxycodone Screen Urine Methadone Screen Ur Barbiturates Screen U Tricyclic Antidepress Ur Phencyclidine Scrn Ur Amphetamines Screen U Methamphetamines Scrn Ur MDMA Scrn (Ecstasy) U Benzodiazepines Scrn Urine Cocaine Screen U Marijuana (THC) Screen Ketones 11/07/18 11/07/18 11/07/18 19:52 19:52 19:52 WBC RBC Hgb Hct MCV MCH MCHC RDW Plt Count Neut % (Auto) Lymph % (Auto) [place] % (Auto) Eos % (Auto) Baso % (Auto) Neut # (Auto) Lymph # (Auto) [place] # (Auto) Eos # (Auto) Baso # (Auto) PT INR APTT D-Dimer 245 H VBG pH VBG pCO2 VBG pO2 VBG HCO3 VBG Total CO2 VBG O2 Saturation VBG Base Excess Sodium Potassium Chloride Carbon Dioxide BUN Creatinine Estimated GFR BUN/Creatinine Ratio Glucose Hemoglobin A1c Lactate 1.0 Calcium Total Bilirubin AST ALT Alkaline Phosphatase Total Protein Albumin Globulin Albumin/Globulin Ratio Triglycerides Cholesterol LDL Cholesterol, Calc HDL Cholesterol Procalcitonin Urine Color Urine Appearance Urine pH Ur Specific [place] Urine Protein Urine Glucose (UA) Urine Ketones Urine Occult Blood Urine Nitrate Urine Bilirubin Urine Urobilinogen Ur Leukocyte Esterase Urine RBC Urine WBC Urine Bacteria Ur Culture Indicated? Micro UA Comment Urine Opiates Screen Ur Oxycodone Screen Urine Methadone Screen Ur Barbiturates Screen U Tricyclic Antidepress Ur Phencyclidine Scrn Ur Amphetamines Screen U Methamphetamines Scrn Ur MDMA Scrn (Ecstasy) U Benzodiazepines Scrn Urine Cocaine Screen U Marijuana (THC) Screen Ketones 0.16 11/07/18 11/07/18 11/07/18 19:52 23:25 Unknown WBC RBC Hgb Hct MCV MCH MCHC RDW Plt Count Neut % (Auto) Lymph % (Auto) [place] % (Auto) Eos % (Auto) Baso % (Auto) Neut # (Auto) Lymph # (Auto) [place] # (Auto) Eos # (Auto) Baso # (Auto) PT INR APTT D-Dimer VBG pH 7.33 VBG pCO2 56.0 H VBG pO2 32 L VBG HCO3 30 H VBG Total CO2 31 H VBG O2 Saturation 56 L VBG Base Excess 4.0 Sodium Potassium Chloride Carbon Dioxide BUN Creatinine Estimated GFR BUN/Creatinine Ratio Glucose Hemoglobin A1c Lactate Calcium Total Bilirubin AST ALT Alkaline Phosphatase Total Protein Albumin Globulin Albumin/Globulin Ratio Triglycerides Cholesterol LDL Cholesterol, Calc HDL Cholesterol Procalcitonin < 0.05 Urine Color Straw Urine Appearance Clear Urine pH 6.0 Ur Specific [place] 1.010 Urine Protein Negative Urine Glucose (UA) 2+ H Urine Ketones Negative Urine Occult Blood Negative Urine Nitrate Negative Urine Bilirubin Negative Urine Urobilinogen 0.2 Ur Leukocyte Esterase Negative Urine RBC None seen Urine WBC None seen Urine Bacteria None seen Ur Culture Indicated? Cult not indicated Micro UA Comment Microscopic normal Urine Opiates Screen Ur Oxycodone Screen Urine Methadone Screen Ur Barbiturates Screen U Tricyclic Antidepress Ur Phencyclidine Scrn Ur Amphetamines Screen U Methamphetamines Scrn Ur MDMA Scrn (Ecstasy) U Benzodiazepines Scrn Urine Cocaine Screen U Marijuana (THC) Screen Ketones 11/07/18 11/08/18 11/08/18 Unknown 06:29 06:29 WBC RBC Hgb Hct MCV MCH MCHC RDW Plt Count Neut % (Auto) Lymph % (Auto) [place] % (Auto) Eos % (Auto) Baso % (Auto) Neut # (Auto) Lymph # (Auto) [place] # (Auto) Eos # (Auto) Baso # (Auto) PT INR APTT D-Dimer VBG pH VBG pCO2 VBG pO2 VBG HCO3 VBG Total CO2 VBG O2 Saturation VBG Base Excess Sodium Potassium Chloride Carbon Dioxide BUN Creatinine Estimated GFR BUN/Creatinine Ratio Glucose Hemoglobin A1c > 14.0 H Lactate Calcium Total Bilirubin AST ALT Alkaline Phosphatase Total Protein Albumin Globulin Albumin/Globulin Ratio Triglycerides 83 Cholesterol 179 LDL Cholesterol, Calc 81 HDL Cholesterol 81 H Procalcitonin Urine Color Urine Appearance Urine pH Ur Specific [place] Urine Protein Urine Glucose (UA) Urine Ketones Urine Occult Blood Urine Nitrate Urine Bilirubin Urine Urobilinogen Ur Leukocyte Esterase Urine RBC Urine WBC Urine Bacteria Ur Culture Indicated? 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 1. Uncontrolled diabetes mellitus type 2, chronic, present on admission. Active. -Diabetes is complicated by bilateral lower extremity neuropathy. The patient endorses a longstanding excessive thirst and frequent urination -He has been noncompliant with metformin for indeterminate time and is requesting a prescription of metformin and antibiotics at time of discharge or when he decides to leave AMA. -Hemoglobin A1c > 14%. -Blood glucose is 583 on admission. Received 1 L NS bolus in ED. Continue normal saline at 100 mL/hr. -Continue Accu-Cheks and high-dose correctional scale insulin ACHS. -Continue carbohydrate consistent and heart healthy diet. -Diabetic teaching provided reinforcing need for daily medication and daily foot checks. 2. Acute right foot cellulitis, present on admission. Active. -Patient does not perform daily foot checks and has no visible wound. -Warmth and swelling left ankle and foot with pain plantar surface -Received 1 g Ancef IV in the ED. Continue cefazolin 2 g IV every 8 hr for broad-spectrum and robust antibiotic coverage as patient is likely to leave AMA. -Lactic acid and procalcitonin negative. 3. Acute right calf pain, present on admission. Active. -D-dimer mildly elevated at 245, Well's criteria indicates the patient is at moderate risk for DVT. -Venous Doppler of right lower extremity did not demonstrate DVT. Started on therapeutic Lovenox empirically for possible lower extremity DVT which was discontinued. 4. Possible systolic heart murmur. -Patient had systolic murmur per admitting provider. Did not appreciate murmur today on exam. -The patient denies history of a heart murmur. He denies chest pain but does endorse dyspnea on exertion. -12 lead EKG demonstrated Q-waves in contiguous leads V1 and V2 without acute ischemic changes such as ST elevation or depression. -Ordered echocardiogram, pending. 5. Methamphetamine abuse, chronic, present on admission. Active. -Patient admits to methamphetamine 3 times daily -Ordered SPORTS INSTRUCTOR consult for CD assessment and to provide resources. 6. Tobacco dependence, chronic, present on admission. Stable. -Patient currently consumes 1 carton of cigarettes per month and is not interested in smoking cessation. -Offered patient Nicoderm as needed for nicotine withdrawal which he refused. Disposition: Likely to discharge in 1-2 days depending upon improvement in cellulitis and glycemic control. However, patient is adamant that he is going to leave AMA in next 12 hours. Quality VTE Deep Vein Thrombosis/Pulmonary Embolism Present on Admission: No
--- NOTE | 2018-11-08 22:42 | PC.NURSE ---
patient seemed anxious and patient seemed like he just wanted to be alone. Patient was cooperative. Patient had red, dry, flaky skin on both feet. Patient had high blood sugar during beginning of the shift but was controlled and BG was brought down to 134. Patient was experiencing slightly less sensation over the toes compared to the heals. patient has a large scab on the right front tibia. Patients HR was at 105
[2018-11-09] VITALS (8 sets, daily range): BP systolic 114–140; BP diastolic 47–64; PULSE 101–118; RESP 16–19; TEMP 36.5–36.9; O2SAT 96–98
[2018-11-09] MEDS: CEFAZOLIN 2 GM/100 ML FROZ.PIGGY IV ×3 (05:17→21:23)
[2018-11-09] MEDS: PANTOPRAZOLE 20 MG TABLET PO (05:17)
[2018-11-09] MEDS: ENOXAPARIN 40 MG/0.4 ML SYRINGE SUBCUT (08:54)
[2018-11-09] MEDS: ASPIRIN EC 81 MG TABLET PO (08:54)
[2018-11-09] MEDS: INSULIN ASPART 100 UNIT/ML INSULN PEN 7 UNIT SUBCUT ×3 (08:56→17:00)
[2018-11-09 09:31] LABS: BUN Creatinine Ratio 25.7 (6-22); Blood Urea Nitrogen 18 mg/dL (9-20); Calcium 9.7 mg/dL (8.4-10.2); Carbon Dioxide 26 mmol/L (22-32); Chloride 100 mmol/L (98-107); Estimated Glomerular Filt Rate > 60.0 mL/min (>60); Glucose 253 mg/dL (70-100); HEMOLYSIS < 15 (0-50); Potassium 4.6 mmol/L (3.4-5.1); Sodium 133 mmol/L (137-145)
[2018-11-09] MEDS: INSULIN ASPART 100 UNIT/ML INSULN PEN SUBCUT ×2 (10:21→13:18)
--- NOTE | 2018-11-09 14:11 | PM.PN.1 ---
Subjective Date Patient Seen: 11/09/18 Time Patient Seen: 14:12 Interval history: Follow-up on acute right foot cellulitis and uncontrolled diabetes Patient seen at bedside. Patient is doing well. No acute overnight events, however patient is threatening to leave against medical advice. Patient's blood glucose have been running elevated. I have discussed with patient the need for insulin injections. Patient is receptive to education of insulin administration. Exam Vital Signs (past 8 hours): - 11/09/18 07:50 11/09/18 07:55 11/09/18 12:02 Temperature 97.7 F 98.1 F Pulse Rate 113 H 111 H Respiratory Rate 18 18 Blood Pressure 140/64 116/52 L Pulse Oximetry 96 96 98 Oxygen Delivery Method Room Air Oxygen Flow Rate 0 Narrative Exam Narrative: General: No acute distress, A/O x3. HEENT: EOMI bilaterally, PERRLA bilaterally Neck: Supple, no LAD CV: Regular rate rhythm, with systolic murmur appreciated. Respiratory: Clear to auscultation bilaterally with no crackles, wheezes, rhonchi. GI: Positive bowel sounds, nontender, nondistended. No organomegaly Musculoskeletal: Normal range of motion Extremities: No clubbing or cyanosis. Bilateral lower extremities are dry with crackles skin throughout. Scab present in the right. Tibial area with slight erythema in both extremities that are improving. Skin: No bruising or other lesions, aside from what is above Neuro: No focal deficits Psych: Patient is calm and appropriate at this time, although states he will likely leave against medical advice soon Objective Labs Result Diagrams: 11/07/18 19:52 11/09/18 08:40 Labs: Laboratory Results - last 24 hr 11/09/18 08:40 Sodium 133 L Potassium 4.6 Chloride 100 Carbon Dioxide 26 BUN 18 Creatinine 0.70 Estimated GFR > 60.0 BUN/Creatinine Ratio 25.7 H Glucose 253 H D Calcium 9.7 Assessment & Plan Assessment & Plan narrative: 48yo M with PMH significant for uncontrolled diabetes mellitus type 2 with neuropathy, methamphetamine dependence and history of Wilms tumor status post nephrectomy who presented for 1 week history of pain and swelling in right foot. Found to have RLE cellulitis. 1. Uncontrolled diabetes mellitus type 2 - Complicated by neuropathy -Hemoglobin A1c > 14%. -Blood glucose is 583 on admission. He is s/p IVF and correctional insulin with BG still in high 200s -Patient is now ameanable to insulin injections - Will start patient on Lantus 15U QHS and Lispro 7U TIDPC -Continue carbohydrate consistent and heart healthy diet as well as frequent accuchecks and hypoglycemia protocol -Will consult awning installer for diabetic education. 2. Acute right foot cellulitis -Active, improving -patient is afebrile, Lactic acid and procalcitonin negative -Warmth and swelling left ankle and foot with pain plantar surface -Received 1 g Ancef IV in the ED. Continue cefazolin 2 g IV every 8 hr for broad-spectrum and robust antibiotic coverage. Pending blood cultures. 3. Acute right calf pain -Improved -D-dimer mildly elevated at 245, Venous Doppler of right lower extremity did not demonstrate DVT. -Monitor 4. Systolic heart murmur. -12 lead EKG demonstrated Q-waves in contiguous leads V1 and V2 without acute ischemic changes such as ST elevation or depression. -Ordered echocardiogram, pending. 5. Methamphetamine abuse -Patient admits to methamphetamine 3 times daily -Ordered CONSTRUCTION COORDINATOR consult for CD assessment and to provide resources. 6. Tobacco dependence -Patient currently consumes 1 carton of cigarettes per month and is not interested in smoking cessation. -Offered patient Nicoderm as needed for nicotine withdrawal which he refused. Disposition: Will start insulin regimen and educate patient to go home on it. Will continue antibiotics IV until blood cx are back. Pending echo for systolic murmur assessment. Quality VTE Deep Vein Thrombosis/Pulmonary Embolism Present on Admission: No
--- NOTE | 2018-11-09 14:20 | P.PN_ITS ---
Subjective Date Patient Seen: 11/09/18 Time Patient Seen: 14:12 Interval history: Follow-up on acute right foot cellulitis and uncontrolled diabetes Patient seen at bedside. Patient is doing well. No acute overnight events, however patient is threatening to leave against medical advice. Patient's blood glucose have been running elevated. I have discussed with patient the need for insulin injections. Patient is receptive to education of insulin administration. Exam Vital Signs (past 8 hours): - 11/09/18 07:50 11/09/18 07:55 11/09/18 12:02 Temperature 97.7 F 98.1 F Pulse Rate 113 H 111 H Respiratory Rate 18 18 Blood Pressure 140/64 116/52 L Pulse Oximetry 96 96 98 Oxygen Delivery Method Room Air Oxygen Flow Rate 0 Narrative Exam Narrative: General: No acute distress, A/O x3. HEENT: EOMI bilaterally, PERRLA bilaterally Neck: Supple, no LAD CV: Regular rate rhythm, with systolic murmur appreciated. Respiratory: Clear to auscultation bilaterally with no crackles, wheezes, rh onchi. GI: Positive bowel sounds, nontender, nondistended. No organomegaly Musculoskeletal: Normal range of motion Extremities: No clubbing or cyanosis. Bilateral lower extremities are dry with crackles skin throughout. Scab present in the right. Tibial area with slight erythema in both extremities that are improving. Skin: No bruising or other lesions, aside from what is above Neuro: No focal deficits Psych: Patient is calm and appropriate at this time, although states he will likely leave against medical advice soon Objective Labs Result Diagrams: 11/07/18 19:52 11/09/18 08:40 Labs: Laboratory Results - last 24 hr 11/09/18 08:40 Sodium 133 L Potassium 4.6 Chloride 100 Carbon Dioxide 26 BUN 18 Creatinine 0.70 Estimated GFR > 60.0 BUN/Creatinine Ratio 25.7 H Glucose 253 H D Calcium 9.7 Assessment & Plan Assessment & Plan narrative: 48yo M with PMH significant for uncontrolled d iabetes mellitus type 2 with neuropathy, methamphetamine dependence and history of Wilms tumor status post nephrectomy who presented for 1 week history of pain and swelling in right foot. Found to have RLE cellulitis. 1. Uncontrolled diabetes mellitus type 2 - Complicated by neuropathy -Hemoglobin A1c > 14%. -Blood glucose is 583 on admission. He is s/p IVF and correctional insulin with BG still in high 200s -Patient is now ameanable to insulin injections - Will start patient on Lantus 15U QHS and Lispro 7U TIDPC -Continue carbohydrate consistent and heart healthy diet as well as frequent ac cuchecks and hypoglycemia protocol -Will consult marine engineering consultant for diabetic education. 2. Acute right foot cellulitis -Active, improving -patient is afebrile, Lactic acid and procalcitonin negative -Warmth and swelling left ankle and foot with pain plantar surface -Received 1 g Ancef IV in the ED. Continue cefazolin 2 g IV every 8 hr for broad-spectrum and robust antibiotic coverage. Pending blood cultures. 3. Acute right calf pain -Improved -D-dimer mildly elevated at 245, Venous Doppler of right lower extremity did not demonstrate DVT. -Monitor 4. Systolic heart murmur. -12 lead EKG demonstrated Q-waves in contiguous leads V1 and V2 without acute ischemic changes such as ST elevation or depression. -Ordered echocardiogram, pending. 5. Methamphetamine abuse -Patient admits to methamphetamine 3 times daily -Ordered TOOL INSPECTOR consult for CD assessment and to provide resources. 6. Tobacco dependence -Patient currently consumes 1 carton of cigarettes per month and is not interested in smoking cessation. -Offered patient Nicoderm as needed for nicotine withdrawal which he refused. Disposition: Will start insulin regimen and educate patient to go home on it. Will continue antibiotics IV until blood cx are back. Pending echo for systolic murmur assessment. Quality VTE Deep Vein Thrombosis/Pulmonary Embolism Present on Admission: No
--- NOTE | 2018-11-09 16:18 | PC.NURSE ---
1500- Safe handoff from day RN. Pt sleeping at this time w/ abx infusing into IV; denies any needs. Pt refuses to change out of clothes & refuses to let this RN assess his skin. 1630- BG 125; no sliding scale insulin needed. Insulin given per orders. 2100- BG 173; insulin given as ordered. Pt denies any needs.
[2018-11-09] MEDS: INSULIN GLARGINE 100 UNIT/ML 3ML PEN 15 UNIT SUBCUT (21:22)
--- NOTE | 2018-11-09 22:36 | PC.NURSE ---
Patient seemed somewhat depressed and gets a little agitated when asked too many questions. Patient was more awake during the beginning of the shift. Patient was very brief with answers when asked questions and seemed closed off. Patients skin on the ankles looked red, irritated, was rough, and dry. Ankles had non pitting edema as well. Patient was started on a new insulin this evening at 2100. Patients hands were also red, dry, flaky, and skin looked tight. Patient has A healthy appetite and eats 100% of his meal. I was thinking about asking the patient if he would like moisturizer on the dry parts of his skin but the patient has been sleeping this whole evening so i never got a chance.
[2018-11-10 00:30] VITALS: BP 139/72; PULSE 98; RESP 16; TEMP 36.4; O2SAT 98
[2018-11-10 05:18] VITALS: BP 144/75; PULSE 104; RESP 16; TEMP 36.6; O2SAT 98
[2018-11-10] MEDS: CEFAZOLIN 2 GM/100 ML FROZ.PIGGY IV (05:43)
[2018-11-10] MEDS: SODIUM CHLORIDE 0.9% FLUSH 10 ML IV (05:44)
[2018-11-10] MEDS: PANTOPRAZOLE 20 MG TABLET PO (05:45)
[2018-11-10 06:34] LABS: Add Manual Diff / Slide Review NO; Basophils Absolute Auto 100 /uL (0-100); Basophils Percent Auto 0.8 % (0-2); Eosinophils Absolute Auto 200 /uL (0-450); Eosinophils Percent Auto 1.8 % (2-4); Hematocrit 43.3 % (41-53); Hemoglobin 14.6 g/dL (13.5-17.5); Lymphocytes Absolute Auto 1900 /uL (1100-4500); Lymphocytes Percent Auto 20.1 % (25-40); Mean Corpuscular HGB Conc 33.7 % (30-36); Mean Corpuscular Hemoglobin 30.9 PG (26-34); Mean Corpuscular Volume 91.7 fL (80-100); Monocytes Absolute Auto 900 /uL (0-900); Monocytes Percent Auto 9.4 % (3-14); Neutrophils Absolute Auto 6500 /uL (1500-7000); Neutrophils Percent Auto 67.9 % (50-75); Platelet Count 222 X10^3/uL (150-400); Red Blood Cell Count 4.72 X10^6/uL (4.5-5.9); Red Cell Distribution Width 12.7 % (11.6-14.8); White Blood Cell Count 9.6 X10^3/uL (4.5-11.0)
[2018-11-10 06:38] LABS: Blood Urea Nitrogen 21 mg/dL (9-20); Calcium 9.4 mg/dL (8.4-10.2); Carbon Dioxide 29 mmol/L (22-32); Chloride 98 mmol/L (98-107); Estimated Glomerular Filt Rate > 60.0 mL/min (>60); Glucose 120 mg/dL (70-100); HEMOLYSIS < 15 (0-50); Potassium 4.1 mmol/L (3.4-5.1); Sodium 134 mmol/L (137-145)
[2018-11-10 08:05] VITALS: BP 161/72; PULSE 108; RESP 18; TEMP 36.6; O2SAT 99
[2018-11-10] MEDS: INSULIN ASPART 100 UNIT/ML INSULN PEN 7 UNIT SUBCUT ×2 (08:44→12:34)
[2018-11-10] MEDS: INSULIN ASPART 100 UNIT/ML INSULN PEN SUBCUT ×2 (08:45→12:36)
[2018-11-10] MEDS: ENOXAPARIN 40 MG/0.4 ML SYRINGE SUBCUT (08:46)
[2018-11-10] MEDS: ASPIRIN EC 81 MG TABLET PO (08:46)
--- NOTE | 2018-11-10 09:40 | DIET.PN ---
Diet education: Met w/pt; SO unable to be present r/t her working hours. Pt somewhat cynical with comments, but appears to be accepting dx and need to take care of his diabetes. Reports eating regular meals. works at [employer] and gets free meal there, so wondering what he could possibly eat. Has never had education on diet for diabetes. Has not self monitored bg, but states he will now. States he's always been thin. DX: uncontrolled DM2, now requiring insulin Diet: CCD med (3 carbs/meals or 45 grams each meal) Cbg today: 96, 136 Ht: 67 Wt 125# / 56kg BMI 19 Assessment: Poor knowledge of diet/diabetes. Appears receptive but uncertain of ability to follow diet recs Intervention: Provided ed on nutrients in food and effect on bg; portion control of carb foods/consistent carb diet. Suggest 3-4 carb servings/meal (45-60g) when DCs home and becomes more active. Gave suggestions for choices at [employer], including double meat placido on 1/2 bun w/salad. Plan: f/u to reinforce teaching. Pt would benefit from outpatient counseling- suggest referral.
[2018-11-10 10:05] VITALS: O2SAT 97
--- NOTE | 2018-11-10 10:58 | P.DS_ITS ---
History of Present Illness Date Patient Seen: 11/10/18 Time Patient Seen: 10:55 Chief complaint: SWELLING OF FEET AND HANDS Narrative: 48-year-old male with past medical history of diabetes type 2 on metformin and noncompliant with medical therapy, Wilms tumor history presented to emergency department with worsening right foot pain. Per patient, he started experiencing right foot and ankle swelling 1 week prior to admission. Pain was 6/10 severity, associated with swelling, redness. He reported no history trauma or injury has had no recent complaints of cold or flu symptoms, fevers or chills, chest pain or palpitations. He did state that he had a remote history of dyspnea on exertion as well as impaired ambulation related to his right leg pain and neuropathy. He reported no abdominal pain, nausea vomiting and has regular stooling habits without constipation or diarrhea. Reported excessive thirst with frequent urination with nocturia approximately 6 times nightly. Patient admits smoking meth 3 times daily with his last use 3:00 p.m. today. The patient indicated that he does not have a primary care provider. He states he has not been compliant with use of metformin due to running out of it and never getting a refill. Discharge Providers Date of admission: 11/07/18 22:17 Discharge Date: 11/10/18 Consults: 11/07/18 22:32 Consult to Dietitian, Adult Routine Comment: Reason For Exam: Noncomplient diabetic Consult to Discharge Planning Routine Comment: Consult to Agricultural Equipment Design Engineer Routine Comment: Meth use, non complient diabetic, reports no PCP 11/09/18 14:38 Consult to Dietitian, Adult Routine Comment: Reason For Exam: Diabetic education. Insulin education Discharge provider: Gisel Washington MD Summary Discharge Diagnosis: RLE cellulitis Methamphetamine abuse Willms tumor Diabetes Type II, now insulin dependant Hospital Course: In ED, patient's vital signs showed temperature of 98.4?, blood pressure 138/72, tachycardic at 114, respirations 16 and nonlabored with a room air saturation 97%. Lab work was completed blood cultures are drawn. On CBC has a normal white count 8.3 without a left shift, H&H is 14.8 and 44.6 with platelets 221. Has an INR of 1.9, lactate of 1.0. CMP showed sodium of 131 with a potassium 4.8, BUN of 31 and a creatinine of 1.0, blood glucose of 583. His LFTs are within normal range although his alkaline phosphatase is mildly elevated at 149. His elevated blood sugars treated with normal saline bolus and is given 1g cefazolin IV. Following examination a D-dimer is requested as well as a procalcitonin. The patient is admitted for uncontrolled diabetes with hyperglycemia. On the floors, patient was continued on IV hydration for high blood glucose and was started on high-dose correctional insulin regimen. Hemoglobin A1c came back at more than 14%. Because patient's blood sugars continued to be elevated, patient was switched to basal and scheduled insulin regimen of Lantus 15 units q.h.s. and lispro 7 units t.i.d. p.c. with correctional. His sugars have been stabilized. Dietitian was consulted who had a discussion with patient regarding his diabetes and the instructions were provided on how to self administer insulin. Patient was receptive an understanding and was willing to learn. He will be discharged home with insulin regimen and a follow-up to primary care provider within 2 weeks. Patient was deemed to have right foot cellulitis and was continued on cefazolin 2 g q.8 hours for broad antibiotic coverage. Blood cultures were drawn which ca me back negative. Due to appreciated murmur, echo was performed which revealed moderate aortic regurgitation, trace of mitral regurgitation, trace of pulmonic regurgitation, and ejection fraction of 55-60%. Patient will be switched to Bactrim DS 1 tab b.i.d. for 7 more days. Status at Discharge Functional status at discharge: independent ambulation Overall status at discharge: patient is back to baseline Time Spent with Patient Greater than 30 minutes Exam Vital Signs (past 8 hours): - 11/10/18 05:18 11/10/18 08:05 11/10/18 10:05 Temperature 97.8 F 97.8 F Pulse Rate 104 H 108 H Respiratory Rate 16 18 Blood Pressure 144/75 H 161/72 H Pulse Oximetry 98 99 97 Oxygen Delivery Method Room Air Oxygen Flow Rate 0 Narrative Exam Narrative: General: No acute distress, A/O x3. HEENT: EOMI bilaterally, PERRLA bilaterally Neck: Supple, no LAD CV: Regular rate rhythm, with systolic murmur appreciated. Respiratory: Clear to auscultation bilaterally with no crackles, wheezes, rhonchi. GI: Positive bowel sounds, nontender, nondistended. No organomegaly Musculoskeletal: Normal range of motion Extremities: No clubbing or cyanosis. Bilateral lower extremities are dry with crackles skin throughout. Scab present in the right. Tibial area with slight erythema in both extremities that are improving. Skin: No bruising or other lesions, aside from what is above Neuro: No focal deficits Psych: Patient is calm and appropriate at this time. Objective Labs Result Diagrams: 11/10/18 05:56 11/10/18 05:56 Labs: Laboratory Results - last 24 hr 11/10/18 11/10/18 05:56 05:56 WBC 9.6 RBC 4.72 Hgb 14.6 Hct 43.3 MCV 91.7 MCH 30.9 MCHC 33.7 RDW 12.7 Plt Count 222 Neut % (Auto) 67.9 Lymph % (Auto) 20.1 L Bowie % (Auto) 9.4 Eos % (Auto) 1.8 L Baso % (Auto) 0.8 Neut # (Auto) 6500 Lymph # (Auto) 1900 Bowie # (Auto) 900 Eos # (Auto) 200 Baso # (Auto) 100 Sodium 134 L Potassium 4.1 Chloride 98 Carbon Dioxide 29 BUN 21 H Creatinine 0.70 Estimated GFR > 60.0 BUN/Creatinine Ratio 30.0 H Glucose 120 H D Calcium 9.4 Discharge Plan Discharge Plan Patient Disposition: Home Discharge Med Rec/Prescriptions Prescriptions: New Novolog Flexpen U-100 Insulin 100 unit/mL Insulin Pen 7 unit subcut AC 30 Days Qty: 2.1 RF: 0 Lantus Solostar U-100 Insulin 100 unit/mL (3 mL) Insulin Pen 15 unit subcut BEDTIME 30 Days RF: 0 sulfamethoxazole-trimethoprim [Bactrim DS] 800-160 mg tablet 1 tab PO BID Qty: 14 RF: 0 Discontinued metformin 1,000 mg Tablet 1,000 mg PO BID RF: 0 Provider Discharge Instructions Diet: Carb-consistent/Diabetic Visit Report/Discharge Packet Instructions: How to Take Care of Your Feet If You Have Diabetes, DI for Ce llulitis -- Adult, Complications of Type 2 Diabetes, Type 2 Diabetes, DI for Diabetes Type 2 Visit Report Forms: Stroke Signs & Symptoms Discharge Data Attending Provider: Tyron Joyce Admit Date/Time: 11/07/18 22:17 Quality VTE Deep Vein Thrombosis/Pulmonary Embolism Present on Admission: No
[2018-11-10 12:15] VITALS: BP 156/74; PULSE 110; RESP 20; TEMP 37.1; O2SAT 100
--- NOTE | 2018-11-11 15:41 | CM.DPNOTE ---
Pt DC , home w/family. SHANNAN Mix asked this HEALTH CARE ATTORNEY to assist in coordinating the Diabetic education on an outpt basis. Reviewed this process w/ Certified Detention Deputy Zoe Casarez. With pt's permission, completed a referral form, Dr Washington signed and this HEALTH CARE ATTORNEY faxed to [facility] Certified Detention Deputy's office today, per instructions. W/pt's permission, placed call to their home to speak w/pt's bong Rouse. Pt's mom answered, stated bong Rouse as at work and has no minutes left on her phone this HEALTH CARE ATTORNEY unsure whether any information could be shared so left contact information for [facility] Certified Detention Deputy's office only. P: Home , w/ family and outpt f/u as desired or pursued by pt. YUMI Gómez
== END 2018-11-10 12:45 | disposition home or self-care (01) | DRG 383 ==
LOC: ED 20:57 → AC 11-08 07:31
PROVIDERS: Internal Medicine; Admitting Provider Nurse Practitioner Adult Health; Emergency Provider Internal Medicine; Visit Provider Nurse Practitioner Adult Health
DX: L03.115 Cellulitis of right lower limb (principal); E11.40 Type 2 diabetes mellitus with diabetic neuropathy, unspecified; E11.65 Type 2 diabetes mellitus with hyperglycemia; T38.3X6A Underdosing of insulin and oral hypoglycemic [antidiabetic] drugs, initial encounter; Z91.128 Patient's intentional underdosing of medication regimen for other reason; E86.0 Dehydration; F15.10 Other stimulant abuse, uncomplicated; F17.200 Nicotine dependence, unspecified, uncomplicated
CPT/HCPCS: 36415; 36591; 80048; 80053; 80061; 80305; 81001; 81003; 82009; 82805; 82962; 83036; 83605; 84145; 85025; 85379; 85610; 85730; 87040; 93005; 93010; 93306; 93971; 96361; 96374; 99282; 99284; 99406; J0690; J1650